=== PATIENT | male | born 1995 | race Caucasian/White ===

== ENCOUNTER 2017-08-05 11:42 | Emergency (ER) | payer OTHER, BC ==
[2017-08-05 11:48] VITALS: BP 115/74; PULSE 67; RESP 20; TEMP 98
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
--- NOTE | 2017-08-05 12:48 | XR ---
EXAMINATION TYPE: XR ribs RT w pa chest xray DATE OF EXAM: 08/05/2017 CLINICAL HISTORY: Right rib pain. TECHNIQUE: Single frontal view of the chest is obtained. Frontal and oblique views of the right ribs were also obtained. COMPARISON: None FINDINGS: There is no focal air space opacity, pleural effusion, or pneumothorax seen. The cardiac silhouette size is within normal limits. The osseous structures are intact. No displaced rib fractu re is identified. No suspicious osseous lesion is seen. IMPRESSION: No acute cardiopulmonary process or acute rib fracture.
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
== END 2017-08-05 13:08 | disposition home or self-care (01) ==
LOC: EC 11:42
DX: S16.1XXA Strain of muscle, fascia and tendon at neck level, initial encounter (principal); S20.219A Contusion of unspecified front wall of thorax, initial encounter; F17.200 Nicotine dependence, unspecified, uncomplicated; V47.5XXA Car driver injured in collision with fixed or stationary object in traffic accident, initial encounter; Y92.410 Unspecified street and highway as the place of occurrence of the external cause
CPT/HCPCS: 72050; 99284

== ENCOUNTER 2017-08-05 21:51 | Emergency (ER) | payer SELFPAY ==
[2017-08-05 21:55] VITALS: RESP 18; TEMP 97.9
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
[2017-08-06 00:25] VITALS: BP 145/78; PULSE 99
== END 2017-08-06 00:24 | disposition home or self-care (01) ==
LOC: EC 21:51
DX: R42 Dizziness and giddiness (principal); I49.8 Other specified cardiac arrhythmias; F12.90 Cannabis use, unspecified, uncomplicated; F17.200 Nicotine dependence, unspecified, uncomplicated
CPT/HCPCS: 36415; 70450; 84484; 93005; 99285

== ENCOUNTER 2017-08-30 22:21 | Emergency (ER) | payer OTHER ==
[2017-08-30 22:28] VITALS: BP 117/63; PULSE 98; RESP 16; TEMP 99.4
--- NOTE | 2017-08-30 22:36 | ED ---
Upper Extremity HPI - General Chief Complaint: Extremity Injury, Upper Stated Complaint: hand injury Time Seen by Provider: 08/30/17 22:29 Source: patient, RN notes reviewed, old records reviewed Mode of arrival: ambulatory Limitations: no limitations - History of Present Illness Initial Comments: 22-year-old male presents emergency Department chief complaint of right hand pain. He reports that one week ago he was getting from a sitting to standing position. He reports that he put his hand on the ground and caused some pain. Denies punching or hitting anything. He reports the pain is over the distal third through fifth metacarpals. He reports it's difficult for him to make a full fist due to pain and swelling. Patient states that he has a small abrasion over the fifth knuckle. He denies any numbness or tingling down the hand. Denies any elbow or wrist pain. - Related Data Home Medications Medication Instructions Recorded Confirmed No Known Home Medications [No 08/30/17 08/30/17 Known Home Medications] Allergies Allergy/AdvReac Type Severity Reaction Status Date / Time No Known Allergies Allergy Verified 08/30/17 22:28 Review of Systems ROS Statement: Those systems with pertinent positive or pertinent negative responses have been documented in the HPI. ROS Other: All systems not noted in ROS Statement are negative. Past Medical History Past Medical History: No Reported History History of Any Multi-Drug Resistant Organisms: None Reported Past Surgical History: Adenoidectomy, Tonsillectomy Past Psychological History: No Psychological Hx Reported Smoking Status: Current every day smoker Past Alcohol Use History: Occasional Past Drug Use History: Marijuana General Exam - General Exam Comments Initial Comments: 22-year-old male. No distress. Limitations: no limitations General appearance: alert, in no apparent distress Head exam: Present: atraumatic, normocephalic, normal inspection Eye exam: Present: normal appearance, PERRL, EOMI. Absent: scleral icterus, conjunctival injection, periorbital swelling ENT exam: Present: normal exam, mucous membranes moist Neck exam: Present: normal inspection. Absent: tenderness, meningismus, lymphadenopathy Respiratory exam: Present: normal lung sounds bilaterally. Absent: respiratory distress, wheezes, rales, rhonchi, stridor Cardiovascular Exam: Present: regular rate, normal rhythm, normal heart sounds. Absent: systolic murmur, diastolic murmur, rubs, gallop, clicks GI/Abdominal exam: Present: soft, normal bowel sounds. Absent: distended, tenderness, guarding, rebound, rigid Right Upper Arm exam: Present: normal inspection, full ROM Elbow exam: Present: normal inspection, full ROM Forearm Wrist exam: Present: normal inspection, full ROM Hand Wrist exam: Present: full ROM, tenderness (3-5 metacarpal), laceration ( abrasion over 5th knuckle), ecchymosis. Absent: normal inspection Neuro motor exam: Present: wrist extension intact, thumb opposition intact, thumb IP flexion intact, thumb adduction intact, fingers 2-5 abduction intact Vascular: Present: normal capillary refill Back exam: Present: normal inspection Neurological exam: Present: alert, oriented X3, CN II-XII intact Psychiatric exam: Present: normal affect, normal mood Course Vital Signs 08/30/17 22:25 Temperature 99.4 F Pulse Rate 98 Respiratory 16 Rate Blood Pressure 117/63 O2 Sat by Pulse 98 Oximetry Medical Decision Making - Medical Decision Making This patient's 22-year-old male chief complaint of right hand pain. He is a small abrasion over the distal fifth knuckle. He does have full range of motion of the fingers but there is some minor swelling. Tenderness over the distal third through fifth metacarpals. X-ray of the hand was obtained. He has no fracture just soft tissue swelling noted. Discussed at this time and he will be given Víctor wrap, discussed following up with orthosis symptoms are continuing to persist. Discussed ice and anti-inflammatory medication. Patient agrees to treatment plan will comply. Return parameters were discussed. - Radiology Data Radiology results: report reviewed X-ray shows mild soft tissue swelling. No evidence of fractures. Disposition Clinical Impression: Contusion of hand, right, Hand abrasion Disposition: HOME SELF-CARE Condition: Good Instructions: Hand Sprain (ED) Additional Instructions: Patient should take Motrin Tylenol for pain. Ice and is much as possible. Wear the Víctor wrap to help with swelling and pain. Follow-up with orthosis symptoms are continuing to persist. Referrals: None,Stated [Primary Care Provider] - 1-2 days Farhan Awad MD [STAFF PHYSICIAN] - 1-2 days Time of Disposition: 23:03
--- NOTE | 2017-08-30 22:56 | XR ---
EXAMINATION TYPE: XR hand complete RT DATE OF EXAM: 08/30/2017 COMPARISON: 07/30/2014 HISTORY: Pain TECHNIQUE: 3 views FINDINGS: I see no fracture nor dislocation. Metacarpals are intact. There is mild soft tissue swelli ng on the dorsum of the MP joints. IMPRESSION: Mild soft tissue swelling. No fracture.
== END 2017-08-30 23:10 | disposition home or self-care (01) ==
LOC: EC 22:21
DX: S60.221A Contusion of right hand, initial encounter (principal); F17.200 Nicotine dependence, unspecified, uncomplicated; X50.9XXA Other and unspecified overexertion or strenuous movements or postures, initial encounter; Y93.89 Activity, other specified
CPT/HCPCS: 99284

== ENCOUNTER 2017-10-11 15:25 | Inpatient (IN) | payer BC, OTHER ==
[2017-10-11 15:37] VITALS: RESP 16
[2017-10-11] MEDS ORDERED: DIPH,PERTUS(ACELL)TETVAC-LF 0.5 ML VIAL IM ONE (15:56)
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
[2017-10-11] MEDS ORDERED: TOPICAL SKIN ADHESIVE 1 EACH AMP TOPICAL ONE (17:26)
[2017-10-11] MEDS ORDERED: IBUPROFEN 600 MG TAB PO PRN (18:48)
[2017-10-11] MEDS ORDERED: MAGNESIUM HYDROXIDE 2,400 MG/10 ML CUP PO PRN (18:55)
[2017-10-11] MEDS ORDERED: ZIPRASIDONE 20 MG VIAL IM PRN (18:55)
[2017-10-11] MEDS ORDERED: ACETAMINOPHEN TAB 325 MG TAB PO PRN (18:55)
[2017-10-11] MEDS ORDERED: LORazepam 1 MG TAB PO PRN (18:55)
[2017-10-11] MEDS ORDERED: MAG HYDROX/AL HYDROX/SIMETH 30 ML CUP PO PRN (18:55)
[2017-10-11] MEDS ORDERED: LORazepam 2 MG/ML INJ IM PRN (18:56)
--- NOTE | 2017-10-11 18:56 | P.HPMEDMHU ---
History of Present Illness H&P Date: 10/11/17 Chief Complaint: left arm pain Patient is a 22-year-old male with a past medical history of ADD, ADHD , and tobacco abuse who presented to the emergency department for a laceration on his left forearm. Apparently he had gotten into an argument with his and had been punching things. In the ER he admitted to thoughts of self-harm at times. He then signed voluntary into the mental health unit. We have been asked to evaluate him for medical management. Patient seen and examined at bedside. He states that sometimes he gets angry and has difficulty controlling his temper and then feels hopeless. He has a and 2 children at home and life is busy. He denies any recent illnesses. He has not had any cough, cold, fever, flu, nausea, vomiting, diarrhea, constipation. He has poor sleep hygiene and states he sleeps only 1-2 hours a night. He does have an 8-month-old at home. He complains of pain in his left arm that started after his laceration. He has no other complaints of pain currently. He admits to a history of cutting himself but states that was a few years ago. The only medications he has taken in the past are Ritalin and Concerta for ADHD Review of Systems Pertinent positives: + Anger, + difficult to control temper, + left arm pain Pertinent positives and negatives as discussed in HPI, a complete review of systems was performed and all other systems are negative. 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 - Past Family History Father Family Medical History: No Reported History Mother Family Medical History: No Reported History Additional Family Medical History / Comment(s): Patient state no known family history but he is estranged from family Medications and Allergies Home Medications Medication Instructions Recorded Confirmed Type Ibuprofen [Motrin Ib] 800 mg PO BID PRN 10/11/17 10/11/17 History Allergies Allergy/AdvReac Type Severity Reaction Status Date / Time No Known Allergies Allergy Verified 10/11/17 18:47 Physical Exam Osteopathic Statement: *. No significant issues noted on an osteopathic structural exam other than those noted in the History and Physical/Consult. Vitals: Vital Signs Temp Pulse Pulse Resp BP BP Pulse Ox 10/11/17 18:10 98.2 F 60 16 103/58 10/11/17 15:30 97.9 F 74 16 125/77 98 Intake and Output 10/11/17 10/11/17 10/11/17 06:59 14:59 22:59 Other: Weight 63.503 kg General: non toxic, no distress, appears at stated age, normal weight Derm: Laceration to left forearm with 7 sutures intact, no swelling, no redness or drainage, multiple other small abrasions, no unusual rashes/lesions no unusual ecchymoses, warm, dry Head: atraumatic, normocephalic, symmetric Eyes: EOMI, no lid lag, anicteric sclera, pupils equal round reactive to light ENT: Nose and ears atraumatic, no thrush, no pharyngeal erythema Neck: No thyromegaly, no cervical lymphadenopathy, trachea midline, supple Mouth: no lip lesion, mucus membranes moist Cardiovascular: S1S2 reg, no murmur, positive posterior tibial pulse bilateral, no edema, capillary refill less than 2 seconds Lungs: CTA bilateral, no rhonchi, no rales , no accessory muscle use Abdominal: soft, nontender to palpation, no guarding, no appreciable organomegaly, normal bowel sounds Ext: no gross muscle atrophy, muscle strength 5 out of 5 in all 4 extremities grossly, no contractures, Neuro: CN II-XI grossly intact, light touch intact all 4 extremities, finger to nose within normal limits, Psych: Alert, oriented, appropriate affect Cranial Nerve Examination - Cranial Nerves Cranial Nerve II- Optic: Intact Cranial Nerve III- Oculomotor: Intact Cranial Nerve IV- Trochlear: Intact Cranial Nerve V- Trigeminal: Intact Cranial Nerve - Abducens: Intact Cranial Nerve VII- Facial: Intact Cranial Nerve VIII- Auditory: Intact Cranial Nerve IX- Glossopharyngeal: Intact Cranial Nerve X- Vagus: Intact Cranial Nerve XI- Accessory: Intact Cranial Nerve XII- Hypoglossal: Intact Results Comments: X-ray of hand reviewed. Soft tissue swelling over right metacarpophalangeal joint Thrombosis Risk Factor Assmnt - DVT/VTE Prophylaxis DVT/VTE Prophylaxis: Low risk, early ambulation encouraged Assessment and Plan Assessment: Laceration left forearm -[address] -Will need suture removal in approximately 7-10 days -Apply bacitracin once daily and keep covered -Motrin for pain control Tobacco abuse -Cessation -Nicotine replacement Mood instability -Your psych management Check general labs with kidney, liver, CBC, and TSH. Thank you for allowing us to participate in the care of this patient. We will follow peripherally. Do not hesitate to contact us with questions. Someone can be reached from the [facility] hospitalist group at all hours of the day at [phone].
[2017-10-11 18:57] VITALS: BMI 19.7
[2017-10-11 19:08] LABS: Appearance,Urine Clear (Clear); Bilirubin,Urine Negative (Negative); Blood,Urine Negative (Negative); Color,Urine Yellow; Glucose,Urine (UA) Negative (Negative); Ketones,Urine Negative (Negative); Leukocyte Esterase,Urine Negative (Negative); Nitrite,Urine Negative (Negative); PH, Urine 6.5 (5.0-8.0); Protein,Urine Trace (Negative); Specific Gravity,Urine 1.019 (1.001-1.035); Urobilinogen,Urine <2.0 mg/dL (<2.0)
[2017-10-11 19:23] LABS: Amphetamine Screen,Urine Not Detected (NotDetected); Barbiturate Screen,Urine Not Detected (NotDetected); Benzodiazepines Screen,Urine Not Detected (NotDetected); Cocaine Screen,Urine Not Detected (NotDetected); Methadone Screen, Urine Not Detected (NotDetected); Opiate Screen,Urine Not Detected (NotDetected); Oxycodone Screen, Urine Not Detected (NotDetected); Phencyclidine Screen,Urine Not Detected (NotDetected); Tricyclic Antidepressant,Urine Not Detected (NotDetected); Urn Cannabinoid Scrn Detected (NotDetected)
[2017-10-12 09:12] LABS: Basophils # (A) 0.1 k/uL (0-0.2); Basophils % (A) 1 %; Eosinophils # (A) 0.3 k/uL (0-0.7); Eosinophils % (A) 3 %; HCT 47.9 % (39.0-53.0); HGB 15.7 gm/dL (13.0-17.5); Lymphocytes # (A) 2.6 k/uL (1.0-4.8); Lymphocytes % (A) 28 %; MCH 28.9 pg (25.0-35.0); MCHC 32.8 g/dL (31.0-37.0); MCV 88.2 fL (80.0-100.0); Mean Platelet Volume 6.7; Monocytes # (A) 0.6 k/uL (0-1.0); Monocytes % (A) 6 %; Neutrophils # (A) 5.6 k/uL (1.3-7.7); Neutrophils % (A) 60 %; Platelet Count 268 k/uL (150-450); RBC 5.43 m/uL (4.30-5.90); RDW 12.4 % (11.5-15.5); WBC 9.4 k/uL (3.8-10.6)
[2017-10-12] MEDS: NICOTINE 14MG/24HR PATCH TRANSDERM SCH (09:15)
[2017-10-12] MEDS: BACITRACIN 500 UNIT/GM OINT 28.4 GM TUBE TOPICAL SCH (09:16)
[2017-10-12 09:21] LABS: ALT 32 U/L (21-72); AST 23 U/L (17-59); Albumin 4.4 g/dL (3.5-5.0); Alkaline Phosphatase 61 U/L (38-126); Anion Gap 12 mmol/L; Blood Urea Nitrogen 16 mg/dL (9-20); Calcium 9.4 mg/dL (8.4-10.2); Carbon Dioxide 26 mmol/L (22-30); Chloride 105 mmol/L (98-107); Glucose 156 mg/dL (74-99); Potassium 4.5 mmol/L (3.5-5.1); Sodium 143 mmol/L (137-145); Total Bilirubin 0.6 mg/dL (0.2-1.3); Total Protein 6.9 g/dL (6.3-8.2)
--- NOTE | 2017-10-12 12:31 | P.HP ---
Psychiatric H&P - . H&P Date: 10/12/17 History & Physical: IDENTIFYING DATA: The patient is a 22-year-old male who presented voluntarily to the psychiatric unit with suicidal ideation and history of nonlethal self-harm. HISTORY OF PRESENT ILLNESS: He presented to the emergency department initially for the treatment for laceration to his left arm. During the course in the ED he expressed suicidal ideation in the context of recurrent conflict with his . He has been for 3 months and described an argument that escalated to where he was kicking and punching objects that resulted in the cut his arm. He denied that he had cut his arm intentionally and frustration or as a suicide attempt or gesture. He described a history of poor frustration tolerance, difficulty controlling his temper and impulsive behavior. He was diagnosed with ADHD as a child and treated with psychostimulants until early adolescence. He could not recall specifically what started the recent argument with his . He talked about "small things" being important to his and not paying attention to her emotional needs. He denied that he had suicidal plans or an intent to end his life. He described intermittent thoughts of suicide that developed usually in context of stress or frustration. He has a history of nonlethal self-harm where he is made superficial lacerations to his wrist forearm and thighs that occur during periods of heightened emotional states, frustration or anger. He denied experiencing persistent sadness, hopelessness, helplessness or worthlessness. He denied other symptoms of depression such as guilt, insomnia, impairment in functioning, psychomotor retardation, weight loss as well as psychiatric medication anxiety. He denied that he experiences persistent anxiety that interferes with his ability to function. He denied obsessions or compulsions. He denied psychotic experiences such as auditory, visual or olfactory hallucinations, thought insertion, thought casting etc. He smokes marijuana daily but denied the use of other drugs to get high, help him sleep or changes mood. He denied daily use of alcohol. PAST PSYCHIATRIC HISTORY: He denied prior psychiatric hospitalizations. He is not currently in mental health treatment. As mentioned above, he was treated for diagnosis of ADHD as a child. He began self cutting when he was "about 16 years old". He denied that he cuts himself with the intent to end his life. He described a pattern of increasing emotional distress and frustration that his partially relieves by the active self-harm. He denied that he has attempted suicide. PAST MEDICAL HISTORY: He denied history of major medical problems.. ALLERGIES: No known ALLERGIES. SUBSTANCE USE HISTORY: He smokes marijuana every day. He was court ordered for substance abuse counseling following minor in possession of alcohol charges. He denied the use of such drugsas heroin, or opioid pain medications, cocaine, crack cocaine, methamphetamine etc. Tobacco use: He smokes one pack of cigarettes per day FAMILY PSYCHIATRIC/SUBSTANCE USE HISTORY: He is unaware of family history of mental illness. He admitted that several individual in his family have problems with alcohol. LEGAL HISTORY: He is had 2 charges of minor in possession of alcohol. He spent 5 days in senior care following the second charge. He denied that he is on probation, parole or has pending charges. SOCIAL HISTORY: His born and raised in [facility]. He is 1 of 6 children. His parents were never . His brothers and sisters are from different fathers. He attended special education classes. He left high school in 12th grade because he had difficulty with the academics. 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 He was in June. They have a 8-month-old child and his has a 2-year-old from a prior relationship. He lives in an apartment with his their 2 children. MENTAL STATUS EXAM: He presented as a thin somewhat disheveled appearing young male who was pleasant on approach. He made eye contact and appeared to attend to interview. He wore a large earring on the left lobe but had no prominent physical abnormalities. He had a blunted and anxious facial expression. He was alert and oriented to person, place and time. He showed slight psychomotor retardation but no abnormal movements. His his gait was slow but steady. His speech was spontaneous with slight decrease in rate and rhythm. His affect was blunted but stable and appropriate. He denied suicidal ideation or wishes. He denied homicidal ideation. He denied such could depressive cognitions as hopelessness, helplessness or worthlessness. He did not express phobias, ideas reference, paranoid ideation or delusional thoughts. His thinking was concrete but his associations were coherent, logical and goal directed. He denied hallucinations and did not appear to be responding to internal stimuli. Global impression of intellect is average to below. He is aware of his emotional problems and difficulty with frustration tolerance and understands the need for treatment. STRENGTHS: Supportive family, stable employment, good physical health. WEAKNESSES: History of ADHD, possible learning disability, poor frustration tolerance. IMPRESSION: Is a 22-year-old male who has history of a diagnosis of ADHD. He presented to the psychiatric unit with suicidal ideation following an argument with his . He reports history of impulsive behavior, poor frustration tolerance and difficulty controlling his anger. He is not been treated for ADHD since he was young adolescent. His history of nonlethal self-harm where he cuts himself on the arm and legs during periods of heightened emotional tension. He does not appear to meet criteria for mood disorder, anxiety disorder or psychotic disorder. I suspect that the self-harm, poor frustration tolerance, difficulty with his temper are related to the ADHD and possible developmental disability. He should be treated on an outpatient basis with a combination of multimodal therapy and psychopharmacology. Consider a trial of an activating antidepressant such as Effexor or Wellbutrin. PRINCIPLE DIAGNOSIS: Suicidal ideation, ADHD, adjustment disorder with disturbance of mood and conduct, cannabis use disorder unspecified RECOMMENDATION: Continue inpatient psychiatric hospitalization due to the suicidal ideation and impulsive behavior. Begin a trial of Effexor XL 150 mg daily for the treatment of ADHD and emotional lability. Encourage participation in therapeutic groups and activities. Evaluate clinical status response to treatment daily basis. Refer to the [facility] for continued outpatient mental health treatment. Allergies Allergy/AdvReac Type Severity Reaction Status Date / Time No Known Allergies Allergy Verified 10/11/17 18:47 Vital Signs Temp 97.8 F 10/12/17 06:22 Pulse 63 10/12/17 06:22 Resp 16 10/12/17 06:22 BP 110/56 10/12/17 06:22 Pulse Ox 98 10/11/17 15:30 Intake & Output 10/11/17 10/12/17 10/12/17 18:59 06:59 18:59 Weight 58.9 kg 58.9 kg Laboratory Last Values WBC 9.4 k/uL (3.8-10.6) 10/12/17 08:46 RBC 5.43 m/uL (4.30-5.90) 10/12/17 08:46 Hgb 15.7 gm/dL (13.0-17.5) 10/12/17 08:46 Hct 47.9 % (39.0-53.0) 10/12/17 08:46 MCV 88.2 fL (80.0-100.0) 10/12/17 08:46 MCH 28.9 pg (25.0-35.0) 10/12/17 08:46 MCHC 32.8 g/dL (31.0-37.0) 10/12/17 08:46 RDW 12.4 % (11.5-15.5) 10/12/17 08:46 Plt Count 268 k/uL (150-450) 10/12/17 08:46 Neutrophils % 60 % 10/12/17 08:46 Lymphocytes % 28 % 10/12/17 08:46 Monocytes % 6 % 10/12/17 08:46 Eosinophils % 3 % 10/12/17 08:46 Basophils % 1 % 10/12/17 08:46 Neutrophils # 5.6 k/uL (1.3-7.7) 10/12/17 08:46 Lymphocytes # 2.6 k/uL (1.0-4.8) 10/12/17 08:46 Monocytes # 0.6 k/uL (0-1.0) 10/12/17 08:46 Eosinophils # 0.3 k/uL (0-0.7) 10/12/17 08:46 Basophils # 0.1 k/uL (0-0.2) 10/12/17 08:46 Sodium 143 mmol/L (137-145) 10/12/17 08:46 Potassium 4.5 mmol/L (3.5-5.1) 10/12/17 08:46 Chloride 105 mmol/L (98-107) 10/12/17 08:46 Carbon Dioxide 26 mmol/L (22-30) 10/12/17 08:46 Anion Gap 12 mmol/L 10/12/17 08:46 BUN 16 mg/dL (9-20) 10/12/17 08:46 Creatinine 1.00 mg/dL (0.66-1.25) 10/12/17 08:46 Est GFR (CKD-EPI)AfAm >90 (>60 ml/min/1.73 sqM) 10/12/17 08:46 Est GFR (CKD-EPI)NonAf >90 (>60 ml/min/1.73 sqM) 10/12/17 08:46 Glucose 156 mg/dL (74-99) H 10/12/17 08:46 Calcium 9.4 mg/dL (8.4-10.2) 10/12/17 08:46 Total Bilirubin 0.6 mg/dL (0.2-1.3) 10/12/17 08:46 AST 23 U/L (17-59) 10/12/17 08:46 ALT 32 U/L (21-72) 10/12/17 08:46 Alkaline Phosphatase 61 U/L (38-126) 10/12/17 08:46 Total Protein 6.9 g/dL (6.3-8.2) 10/12/17 08:46 Albumin 4.4 g/dL (3.5-5.0) 10/12/17 08:46 TSH 1.470 mIU/L (0.465-4.680) 10/12/17 08:46 Urine Color Yellow 10/11/17 17:10 Urine Appearance Clear (Clear) 10/11/17 17:10 Urine pH 6.5 (5.0-8.0) 10/11/17 17:10 Ur Specific [place] 1.019 (1.001-1.035) 10/11/17 17:10 Urine Protein Trace (Negative) H 10/11/17 17:10 Urine Glucose (UA) Negative (Negative) 10/11/17 17:10 Urine Ketones Negative (Negative) 10/11/17 17:10 Urine Blood Negative (Negative) 10/11/17 17:10 Urine Nitrite Negative (Negative) 10/11/17 17:10 Urine Bilirubin Negative (Negative) 10/11/17 17:10 Urine Urobilinogen <2.0 mg/dL (<2.0) 10/11/17 17:10 Ur Leukocyte Esterase Negative (Negative) 10/11/17 17:10 Urine Opiates Screen Not Detected (NotDetected) 10/11/17 17:00 Ur Oxycodone Screen Not Detected (NotDetected) 10/11/17 17:00 Urine Methadone Screen Not Detected (NotDetected) 10/11/17 17:00 Ur Propoxyphene Screen Not Detected (NotDetected) 10/11/17 17:00 Ur Barbiturates Screen Not Detected (NotDetected) 10/11/17 17:00 U Tricyclic Antidepress Not Detected (NotDetected) 10/11/17 17:00 Ur Phencyclidine Scrn Not Detected (NotDetected) 10/11/17 17:00 Ur Amphetamines Screen Not Detected (NotDetected) 10/11/17 17:00 U Methamphetamines Scrn Not Detected (NotDetected) 10/11/17 17:00 U Benzodiazepines Scrn Not Detected (NotDetected) 10/11/17 17:00 Urine Cocaine Screen Not Detected (NotDetected) 10/11/17 17:00 U Marijuana (THC) Screen Detected (NotDetected) H 10/11/17 17:00 10/12/17 12:05 10/12/17 12:14
[2017-10-12] MEDS: buPROPion XL 150 MG TAB.ER.24H PO SCH (14:57)
[2017-10-13 06:30] VITALS: BP 137/73; PULSE 58; TEMP 97.6
[2017-10-13] MEDS: buPROPion XL 150 MG TAB.ER.24H PO SCH (09:06)
[2017-10-13] MEDS: NICOTINE 14MG/24HR PATCH TRANSDERM SCH (09:06)
[2017-10-13] MEDS: BACITRACIN 500 UNIT/GM OINT 28.4 GM TUBE TOPICAL SCH (09:08)
--- NOTE | 2017-10-13 12:45 | P.DS ---
Providers Date of admission: 10/11/17 17:08 Attending physician: Wesley Hoang MD Consults: 10/11/17 18:55 Consult Physician Routine Consulting Provider: Rhianna Physician Consult Reason/Comments: follow up H & P Do you want consulting provider notified?: Already Contacted Primary care physician: Stated None - Discharge Diagnosis(es) (1) ADHD (attention deficit hyperactivity disorder) Current Visit: Yes Status: Chronic Priority: Medium (2) Laceration Current Visit: Yes Status: Acute Priority: Low (3) Suicidal ideation Current Visit: Yes Status: Resolved Hospital Course: The patient is a 22-year-old male who presented voluntarily to the psychiatric unit with suicidal ideation, history of nonlethal self-harm (cutting ) and ADHD. He initially presented to the emergency department for the treatment of laceration to his left arm. During the course in the emergency department express suicidal ideation in the context of recurrent conflict with his . They have been 3 months and he described frequent conflict. Prior to admission he described an argument that escalated to where he was kicking and function objects that resulted in injury to his arm. He denied that he had cut his arm intentionally that he attempted suicide. He described a history of ADHD and poor frustration tolerance, difficulty controlling his temper and impulsive behavior. He denied symptoms suggestive of sustained depression such as persistent sadness, hopelessness, helplessness or worthlessness. He denied experiencing such depressive symptoms as guilt, insomnia, impairment in functioning, psychomotor retardation or weight loss. He denied experiencing other psychotic symptoms such as persistent and severe anxiety, obsessions, compulsions and psychotic symptoms. He smokes marijuana daily denied use of other drugs including alcohol. We admitted him to the psychiatric unit under care of this screen writer. We provided a biopsychosocial assessment. The [employer] consultant service trainer completed initial physical examination. Relatedness diagnoses laceration to left arm, and tobacco abuse. His UDS was positive only for marijuana. The suicidal thoughts remitted by the time he arrived on the psychiatric unit. He posed no management problem and required no emergency medications for treatment of acute symptoms. We discussed a trial of an activating antidepressant for the treatment of the impulsiveness, poor frustration tolerance and difficulty controlling his anger. He consented to a trial of bupropion and we began Wellbutrin XL 150 mg daily. He reported no side effects but felt that he was "better able to concentrate" with the medication. At the time of discharge he was casually groomed, pleasant and cooperative. He made eye contact and attended to interview. He had a blunted steep tender right facial expression. He was alert and oriented to person, place and time. He showed no abnormality of psychomotor activity. His speech was spontaneous with normal rate, rhythm and volume. His affect was stable and appropriate. He denied suicidal ideation or wishes. He denied homicidal ideation. He denied such depressive cognitions as hopelessness, helplessness and worthlessness. He did not ask phobias, ideas reference and paranoid ideation. He did not express delusional thoughts. His thinking was abstract and associations were coherent and goal directed. He denied hallucinations and didn't appear to be responding to internal stimuli. Patient Condition at Discharge: Good Plan - Discharge Summary Discharge Rx Participant: No New Discharge Prescriptions: New buPROPion XL [Wellbutrin XL] 150 mg PO DAILY #30 tab.er.24h Nicotine 14Mg/24Hr Patch [Habitrol] 1 patch TRANSDERM DAILY #7 patch Continue Ibuprofen [Motrin Ib] 800 mg PO BID PRN PRN Reason: Pain Discharge Medication List Ibuprofen [Motrin Ib] 800 mg PO BID PRN 10/11/17 [History] Nicotine 14Mg/24Hr Patch [Habitrol] 1 patch TRANSDERM DAILY #7 patch 10/13/17 [ Rx] buPROPion XL [Wellbutrin XL] 150 mg PO DAILY #30 tab.er.24h 10/13/17 [Rx] Follow up Appointment(s)/Referral(s): None,Stated [Primary Care Provider] - 1-2 days Patient Instructions/Handouts: How to Stop Smoking (DC), Stress (DC), ADHD in Adults (DC), Cannabis Abuse (DC), Suicide Prevention for Adults (DC) Activity/Diet/Wound Care/Special Instructions: Remove sutures between October 18- Remove all weapons and firearms from your home; Refrain from street drugs and alcohol; Diet as tolerated; Activity as tolerated; Keep all scheduled follow-up appointments for continuity of care; If you need any of your prescriptions refilled, either contact your PCP for medical meds. or your after care psychiatrist for psych. meds.; If you have any problems, you can call the Crisis Line at or 409 in case of emergency or go to the nearest emergency room for a psychiatric evaluation. Discharge Disposition: HOME SELF-CARE
== END 2017-10-13 13:23 | disposition home or self-care (01) | DRG 886 ==
LOC: EC 15:25 → 3MHU 17:08
PROVIDERS: ADMIT Psychiatry & Neurology Psychiatry; ATTEND Psychiatry & Neurology Psychiatry
PROC: 0HQGXZZ Repair Left Hand Skin, External Approach (ICD-10-PCS; principal; 2017-10-11)
PROC: 0HQEXZZ Repair Left Lower Arm Skin, External Approach (ICD-10-PCS; principal; 2017-10-11)
DX: F90.9 Attention-deficit hyperactivity disorder, unspecified type (principal); R45.851 Suicidal ideations; F12.90 Cannabis use, unspecified, uncomplicated; F17.200 Nicotine dependence, unspecified, uncomplicated; S51.812A Laceration without foreign body of left forearm, initial encounter; S61.211A Laceration without foreign body of left index finger without damage to nail, initial encounter; W22.01XA Walked into wall, initial encounter
CPT/HCPCS: 12002; 80053; 80306; 81003; 82075; 84443; 85025; 90471; 90715; 99285

== ENCOUNTER 2017-12-04 18:58 | Emergency (ER) | payer OTHER ==
[2017-12-04 19:27] VITALS: PULSE 100; RESP 20; TEMP 98.6
[2017-12-04 19:28] VITALS: BP 117/60
--- NOTE | 2017-12-04 20:35 | XR ---
EXAMINATION TYPE: XR foot complete LT DATE OF EXAM: 12/04/2017 COMPARISON: NONE HISTORY: Foot pain TECHNIQUE: 3 views FINDINGS: I see no fracture nor dislocation. Metatarsals are intact. There are no erosions. IMPRESSION: Negative left foot exam.
--- NOTE | 2017-12-04 21:03 | ED ---
General Adult HPI - General Chief complaint: Extremity Injury, Lower Stated complaint: lt foot injury Time Seen by Provider: 12/04/17 20:38 Source: patient, family, RN notes reviewed Mode of arrival: ambulatory Limitations: no limitations - History of Present Illness Initial comments: 22-year-old male presents to the emergency department for a chief complaint of left foot pain. Patient states he was at work when a cart carrying a heavy crate rolled over his left foot one week ago. Patient states it has been hurting since because he has been walking on it and working with it for the past week. Patient states he now has the weekend off. Patient states the pain is mostly on the plantar aspect of his left foot. Patient denies any pain in the ankle. Patient denies any other injuries. Patient has no other complaints at this time including shortness of breath, chest pain, abdominal pain, nausea or vomiting, headache, or visual changes. - Related Data Home Medications Medication Instructions Recorded Confirmed Ibuprofen [Motrin Ib] 800 mg PO BID PRN 10/11/17 12/04/17 Previous Rx's Medication Instructions Recorded Nicotine 14Mg/24Hr Patch [Habitrol] 1 patch TRANSDERM DAILY #7 patch 10/13/17 buPROPion XL [Wellbutrin XL] 150 mg PO DAILY #30 tab.er.24h 10/13/17 Allergies Allergy/AdvReac Type Severity Reaction Status Date / Time No Known Allergies Allergy Verified 12/04/17 19:27 Review of Systems ROS Statement: Those systems with pertinent positive or pertinent negative responses have been documented in the HPI. ROS Other: All systems not noted in ROS Statement are negative. Past Medical History Past Medical History: No Reported History Additional Past Medical History / Comment(s): ADD/ADHD History of Any Multi-Drug Resistant Organisms: None Reported Past Surgical History: Adenoidectomy, Tonsillectomy Past Psychological History: No Psychological Hx Reported Smoking Status: Current every day smoker Past Alcohol Use History: Occasional Past Drug Use History: Marijuana - Past Family History Father Family Medical History: No Reported History Mother Family Medical History: No Reported History Additional Family Medical History / Comment(s): Patient state no known family history but he is estranged from family General Exam Limitations: no limitations General appearance: alert, in no apparent distress Head exam: Present: atraumatic, normocephalic, normal inspection Eye exam: Present: normal appearance ENT exam: Present: normal exam Neck exam: Present: normal inspection, full ROM. Absent: tenderness, meningismus, lymphadenopathy Respiratory exam: Present: normal lung sounds bilaterally. Absent: respiratory distress, wheezes, rales, rhonchi, stridor Cardiovascular Exam: Present: regular rate, normal rhythm, normal heart sounds. Absent: systolic murmur, diastolic murmur, rubs, gallop, clicks Extremities exam: Present: full ROM (Full range of motion of the left ankle. Patient is able to move all toes in the left foot), tenderness (Tenderness to the plantar aspect of the left foot), normal capillary refill (Refill less than 2 seconds and pedal pulse 2+). Absent: joint swelling (No swelling or ecchymosis or erythema noted of the left foot) Course Vital Signs 12/04/17 19:25 Temperature 98.6 F Pulse Rate 100 Respiratory 20 Rate Blood Pressure 117/60 O2 Sat by Pulse 97 Oximetry Medical Decision Making - Medical Decision Making 22-year-old male presents to the emergency department for a chief complaint of left foot pain times one week. Patient was at work when a cart ran over his foot. On exam patient has full range motion of the ankle and can move all toes. Pedal pulse 2+. Neurovascular intact. No signs of trauma or ecchymosis noted.X-ray of the left foot shows no fracture or dislocation. Metatarsals are intact. No erosions. Patient left AMA after being told he needed to give a urine sample for work. Disposition Clinical Impression: Foot pain, left Disposition: Left Against Medical Advice Condition: Good Instructions: Foot Contusion (ED) Is patient prescribed a controlled substance at d/c from ED?: No Referrals: None,Stated [Primary Care Provider] - 1-2 days Time of Disposition: 21:02
== END 2017-12-04 21:03 | disposition left against medical advice (07) ==
LOC: EC 18:58
DX: M79.672 Pain in left foot (principal); F17.200 Nicotine dependence, unspecified, uncomplicated
CPT/HCPCS: 99283

== ENCOUNTER 2018-02-14 14:27 | Emergency (ER) | payer MEDICAID, OTHER ==
[2018-02-14 14:35] VITALS: RESP 16
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
[2018-02-14 16:26] LABS: Amphetamine Screen,Urine Not Detected (NotDetected); Barbiturate Screen,Urine Not Detected (NotDetected); Benzodiazepines Screen,Urine Not Detected (NotDetected); Cocaine Screen,Urine Not Detected (NotDetected); Methadone Screen, Urine Not Detected (NotDetected); Opiate Screen,Urine Not Detected (NotDetected); Oxycodone Screen, Urine Not Detected (NotDetected); Phencyclidine Screen,Urine Not Detected (NotDetected); Tricyclic Antidepressant,Urine Not Detected (NotDetected); Urn Cannabinoid Scrn Not Detected (NotDetected)
[2018-02-14 16:34] VITALS: BP 120/78; PULSE 84; TEMP 98
== END 2018-02-14 16:30 | disposition home or self-care (01) ==
LOC: EC 14:27
DX: R45.851 Suicidal ideations (principal); F32.9 Major depressive disorder, single episode, unspecified; F17.200 Nicotine dependence, unspecified, uncomplicated
CPT/HCPCS: 80306; 82075; 99285

== ENCOUNTER → 2018-03-04 | Outpatient (CLI) | payer OTHER ==
[2018-03-04 10:15] LABS: Blood Urea Nitrogen 14 mg/dL (9-20); Cholesterol 176 mg/dL (<200); Glucose 99 mg/dL (74-99); HDL Cholesterol 52 mg/dL (40-60); LDL Cholesterol,Calculated 104 mg/dL (0-99); Lithium 0.5 mmol/L; Triglycerides 98 mg/dL (<150)
[2018-03-04 17:57] LABS: Hemoglobin A1C 5.6 % (4.0-6.0)
== END ==
LOC: LABWHC1 09:21
PROVIDERS: ATTEND Psychiatry & Neurology Psychiatry
DX: Z51.81 Encounter for therapeutic drug level monitoring (principal); Z79.899 Other long term (current) drug therapy
CPT/HCPCS: 36415; 80061; 80178; 82565; 82947; 83036; 84439; 84443; 84520

== ENCOUNTER 2018-06-16 18:50 | Emergency (ER) | payer OTHER ==
--- NOTE | 2018-06-16 19:09 | ED ---
Psych HPI - General Stated Complaint: EPS eval Time Seen by Provider: 06/16/18 18:52 - History of Present Illness Initial Comments: Is a 22-year-old male with history depression who presents emergent department for suicidal comments. He states he got in an argument with his who left. He stated that he was going to take all his pills to her so she called the police who brought him here. The patient states he is not suicidal currently. No homicidal ideation. He states he did not mean what he said and said it out of frustration. He states that not have any intent on taking his medications. He states that he did not take any extra doses of his medications today. He only took his morning doses this morning. He currently denies any physical complaints. - Related Data Home Medications Medication Instructions Recorded Confirmed Benztropine Mesylate 0.5 mg PO BID 06/16/18 06/16/18 [place] [facility] Carbonate 300 mg PO HS 06/16/18 06/16/18 Paliperidone IM [Invega Sustenna] 156 mg IM Q28D 06/16/18 06/16/18 buPROPion HCL [Wellbutrin XL] 150 mg PO DAILY 06/16/18 06/16/18 traZODone HCL 100 mg PO HS 06/16/18 06/16/18 Allergies Allergy/AdvReac Type Severity Reaction Status Date / Time No Known Allergies Allergy Verified 06/16/18 19:20 Review of Systems ROS Statement: Those systems with pertinent positive or pertinent negative responses have been documented in the HPI. ROS Other: All systems not noted in ROS Statement are negative. Past Medical History Past Medical History: No Reported History Additional Past Medical History / Comment(s): ADD/ADHD History of Any Multi-Drug Resistant Organisms: None Reported Past Surgical History: Adenoidectomy, Tonsillectomy Past Psychological History: No Psychological Hx Reported Smoking Status: Current every day smoker Past Alcohol Use History: Occasional Past Drug Use History: None Reported - Past Family History Father Family Medical History: No Reported History Mother Family Medical History: No Reported History Additional Family Medical History / Comment(s): Patient state no known family history but he is estranged from family General Exam - General Exam Comments Initial Comments: Constitutional: Awake alert Appears comfortable Head: Normocephalic atraumatic Eyes: no conjunctival injection No scleral icterus EOMI Neck: No JVD Supple Heart: Regular rate rhythm normal S1-S2 no murmurs Lungs: Clear to auscultation bilaterally No wheezing No rales Abdomen: Soft nondistended nontender Extremities: Non edematous DP pulses intact Radial pulses intact Neuro: A&Ox3 No focal neurologic deficits Psych: Appropriate mood and affect, no suicidal or homicidal ideation Course Vital Signs 06/16/18 06/16/18 19:14 22:06 Temperature 98.7 F 98.5 F Pulse Rate 99 77 Respiratory 18 18 Rate Blood Pressure 125/79 141/77 O2 Sat by Pulse 96 96 Oximetry Medical Decision Making - Medical Decision Making The 22-year-old male who presented for suicidal comments. Patient denies any suicidal ideation in the emergency department. He was evaluated by EPS who did not feel he was requiring inpatient treatment. He is going to have the mobile crisis unit and follow-up with him tomorrow. The was agreeable to take him home. Told to return if he had any worsening or changing symptoms. All questions answered. - Lab Data Lab Results 06/16/18 06/16/18 Range/Units 19:42 21:19 Urine Opiates Screen Not Detected (NotDetected) Ur Oxycodone Screen Not Detected (NotDetected) Urine Methadone Screen Not Detected (NotDetected) Ur Propoxyphene Screen Not Detected (NotDetected) Ur Barbiturates Screen Not Detected (NotDetected) U Tricyclic Antidepress Not Detected (NotDetected) Ur Phencyclidine Scrn Not Detected (NotDetected) Ur Amphetamines Screen Not Detected (NotDetected) U Methamphetamines Scrn Not Detected (NotDetected) U Benzodiazepines Scrn Not Detected (NotDetected) [facility] 0.2 mmol/L Urine Cocaine Screen Not Detected (NotDetected) U Marijuana (THC) Screen Detected H (NotDetected) Disposition Clinical Impression: Depression Disposition: HOME SELF-CARE Condition: Stable Instructions (If sedation given, give patient instructions): Depression (ED) Is patient prescribed a controlled substance at d/c from ED?: No Referrals: None,Stated [Primary Care Provider] - 1-2 days
[2018-06-16 19:20] VITALS: RESP 18
[2018-06-16 20:04] LABS: Amphetamine Screen,Urine Not Detected (NotDetected); Barbiturate Screen,Urine Not Detected (NotDetected); Benzodiazepines Screen,Urine Not Detected (NotDetected); Cocaine Screen,Urine Not Detected (NotDetected); Methadone Screen, Urine Not Detected (NotDetected); Opiate Screen,Urine Not Detected (NotDetected); Oxycodone Screen, Urine Not Detected (NotDetected); Phencyclidine Screen,Urine Not Detected (NotDetected); Tricyclic Antidepressant,Urine Not Detected (NotDetected); Urn Cannabinoid Scrn Detected (NotDetected)
[2018-06-16 22:09] VITALS: BP 141/77; PULSE 77; TEMP 98.5
== END 2018-06-16 22:06 | disposition home or self-care (01) ==
LOC: EC 18:50
DX: F31.30 Bipolar disorder, current episode depressed, mild or moderate severity, unspecified (principal); F20.9 Schizophrenia, unspecified; F17.200 Nicotine dependence, unspecified, uncomplicated
CPT/HCPCS: 36415; 80178; 80306; 82075; 99285

== ENCOUNTER 2018-10-03 21:02 | Emergency (ER) | payer OTHER ==
[2018-10-03 21:12] VITALS: BP 95/59; PULSE 88; RESP 16; TEMP 98.8
[2018-10-03] MEDS ORDERED: DIPH,PERTUS(ACELL)TETVAC-LF 0.5 ML VIAL IM ONE (21:39)
[2018-10-03] MEDS ORDERED: IBUPROFEN 600 MG TAB PO STA (21:39)
--- NOTE | 2018-10-03 22:04 | CT ---
EXAM: CT Head Without Intravenous Contrast CLINICAL HISTORY: ITS.REASON CT Reason: Pain TECHNIQUE: Axial computed tomography images of the head/brain without intravenous contrast. CTDI is 45 mGy and DLP is 1399 mGy-cm. This CT exam was performed using one or more of the following dose reduction techniques: automated exposure control, adjustment of the mA and/or kV according to patient size, and/or use of iterative reconstruction technique. COMPARISON: CT head 08/05/17 FINDINGS: Brain: No hemorrhage, large hypodensity, or mass effect. Ventricles: No hydrocephalus. Bones/joints: Unremarkable. Soft tissues: Unremarkable. Sinuses: Unremarkable. Mastoid air cells: Clear. IMPRESSION: No acute hemorrhage, hydrocephalus, or mass effect.
--- NOTE | 2018-10-03 22:06 | CT ---
EXAM: CT Head Without Intravenous Contrast CT Maxillofacial Without Intravenous Contrast CLINICAL HISTORY: ITS.REASON CT Reason: Right jaw pain after trauma TECHNIQUE: Axial computed tomography images of the head/brain and face without intravenous contrast. CTDI is 45 mGy and DLP is 1399 mGy-cm. This CT exam was performed using one or more of the following dose reduction techniques: automated exposure control, adjustment of the mA and/or kV according to patient size, and/or use of iterative reconstruction technique. COMPARISON: No relevant prior studies available. FINDINGS: Brain: Unremarkable. No hemorrhage. No significant white matter disease. No edema. Ventricles: Unremarkable. No ventriculomegaly. Bones/joints: No acute fracture. Soft tissues: 6 mm hyperdense round object in the right facial subcutaneous tissue. Sinuses: Unremarkable. No acute sinusitis. Mastoid air cells: Unremarkable. No mastoid effusion. Orbits: Unremarkable. IMPRESSION: No acute fracture. 6 mm hyperdense round object in the right facial subcutaneous fat.
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
[2018-10-03] MEDS ORDERED: TOPICAL SKIN ADHESIVE 1 EACH AMP TOPICAL ONE (22:37)
== END 2018-10-03 22:52 | disposition home or self-care (01) ==
LOC: EC 21:02
DX: S61.411A Laceration without foreign body of right hand, initial encounter (principal); S00.83XA Contusion of other part of head, initial encounter; S00.81XA Abrasion of other part of head, initial encounter; F17.200 Nicotine dependence, unspecified, uncomplicated; Z79.899 Other long term (current) drug therapy; Z23 Encounter for immunization; Y04.0XXA Assault by unarmed brawl or fight, initial encounter; Y04.2XXA Assault by strike against or bumped into by another person, initial encounter
CPT/HCPCS: 12001; 70450; 70486; 90471; 90715; 99284

== ENCOUNTER 2019-04-18 18:23 | Inpatient (IN) | payer MEDICAID, OTHER ==
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
[2019-04-18] MEDS ORDERED: MAGNESIUM HYDROXIDE 2,400 MG/10 ML CUP PO PRN (23:41)
[2019-04-18] MEDS ORDERED: ZIPRASIDONE 20 MG VIAL IM PRN (23:41)
[2019-04-18] MEDS ORDERED: MAG HYDROX/AL HYDROX/SIMETH 30 ML CUP PO PRN (23:41)
[2019-04-18] MEDS ORDERED: DIVALPROEX ER 500 MG TAB.ER.24H PO SCH (23:45)
[2019-04-18] MEDS ORDERED: ARIPiprazole 15 MG TAB PO SCH (23:45)
[2019-04-19 06:43] VITALS: RESP 16
--- NOTE | 2019-04-19 06:52 | P.MDCNMH ---
History of Present Illness H&P Date: 04/19/19 Chief Complaint: suicide ideation 33-year-old male with history of depression patient comes into the hospital for suicidal ideation. He was planning, jumping off the bridge and to [place]. Patient attempted cutting himself in the wrist and forearm in the past. Patient otherwise reports that she is compliant with his medications however he is not getting the desired effect in controlling symptoms. Patient currently denies any medical concerns for physical complaints, he denies any trouble breathing fevers or chills denies any coughing nausea vomiting abdominal pain changes in his bowel or urinary habits. Review of Systems Pertinent positives as noted in HPI. All other systems were reviewed and are negative Past Medical History Past Medical History: No Reported History Additional Past Medical History / Comment(s): ADD/ADHD History of Any Multi-Drug Resistant Organisms: None Reported Past Surgical History: Adenoidectomy, Tonsillectomy Past Psychological History: ADD/ADHD Smoking Status: Current every day smoker Past Alcohol Use History: Occasional Past Drug Use History: Marijuana - Past Family History Father Family Medical History: No Reported History Mother Family Medical History: No Reported History Additional Family Medical History / Comment(s): Patient state no known family history but he is estranged from family Medications and Allergies Home Medications Medication Instructions Recorded Confirmed Type ARIPiprazole [Abilify] 15 mg PO HS 04/18/19 04/19/19 History Divalproex ER [Depakote ER] 500 mg PO HS 04/18/19 04/19/19 History Allergies Allergy/AdvReac Type Severity Reaction Status Date / Time No Known Allergies Allergy Verified 04/19/19 00:12 Physical Exam Vitals: Vital Signs Temp Pulse Pulse Resp BP BP Pulse Ox 04/19/19 06:42 97.4 F L 65 16 122/60 04/18/19 23:54 98.4 F 74 14 112/65 96 04/18/19 18:25 98.0 F 118 H 16 131/61 97 Intake and Output 04/18/19 04/18/19 04/19/19 14:59 22:59 06:59 Other: Weight 68.039 kg 69.116 kg Constitutional: No acute distress, conversant, pleasant Eyes: Anicteric sclerae, moist conjunctiva, no lid-lag Pupils equal round reactive to light ENMT: NC/AT Oropharynx clear, no erythema, exudates Neck: Supple, FROM, no masses, or JVD No carotid bruits No thyromegaly Lungs: Clear to auscultation Clear to percussion Normal respiratory effort, no accessory muscle use Cardiovascular: Heart regular in rate and rhythm, No murmurs, gallops, or rubs No peripheral edema Abdominal: Soft Nontender, no guarding, rebound or rigidity Abdomen moving with respiration Normoactive bowel sounds No hepatomegaly, No splenomegaly No palpable mass No abdominal wall hernia noted Skin: Normal temperature, tone, texture, turgor No induration No subcutaneous nodules No rash, lesions No ulcers Extremities: No digital cyanosis No clubbing Pedal pulses intact and symmetrical Radial pulses intact and symmetrical No calf tenderness Psychiatric: Alert and oriented to person, place and time depressed affect poor judgement Neuro Muscles Strength 5/5 in all 4 extremities Sensation to light touch grossly present throughout Cranial nerves II-XII grossly intact No focal sensory deficits Lymphatics: no palpable cervical or supraclavicular , or inguinal lymph nodes Cranial Nerve Examination - Cranial Nerves Cranial Nerve II- Optic: Intact Cranial Nerve III- Oculomotor: Intact Cranial Nerve IV- Trochlear: Intact Cranial Nerve V- Trigeminal: Intact Cranial Nerve - Abducens: Intact Cranial Nerve VII- Facial: Intact Cranial Nerve VIII- Auditory: Intact Cranial Nerve IX- Glossopharyngeal: Intact Cranial Nerve X- Vagus: Intact Cranial Nerve XI- Accessory: Intact Cranial Nerve XII- Hypoglossal: Intact Assessment and Plan Assessment: 23-year-old male with history of depression claims to be compliant with her medications presented due to suicidal ideation due to poorly controlled symptoms of depression. Currently denies any medical complaints Plan: suicidal ideation Depression Management per psych Smoking Counseled to quit smoking Nicotine replacement therapy offered Low risk for DVT patient is ambulatory Follow-up labs Thank you for allowing us to participate in the care of this patient. We will f elizabet peripherally. Do not hesitate to contact us with questions. Someone can be reached from the [facility] hospitalist group at all hours of the day at [phone].
[2019-04-19] MEDS: NICOTINE 21MG/24HR PATCH TRANSDERM SCH ×2 (08:46→13:52)
[2019-04-19 10:24] LABS: Basophils % (A) 0 %; Eosinophils # (A) 0.5 k/uL (0-0.7); Eosinophils % (A) 5 %; HCT 47.3 % (39.0-53.0); HGB 15.2 gm/dL (13.0-17.5); Lymphocytes # (A) 2.9 k/uL (1.0-4.8); Lymphocytes % (A) 28 %; MCH 27.9 pg (25.0-35.0); MCHC 32.2 g/dL (31.0-37.0); MCV 86.8 fL (80.0-100.0); Mean Platelet Volume 7.2; Monocytes # (A) 0.8 k/uL (0-1.0); Monocytes % (A) 8 %; Neutrophils # (A) 5.8 k/uL (1.3-7.7); Neutrophils % (A) 57 %; Platelet Count 296 k/uL (150-450); RBC 5.45 m/uL (4.30-5.90); RDW 12.6 % (11.5-15.5); WBC 10.2 k/uL (3.8-10.6)
[2019-04-19 10:27] LABS: ALT 57 U/L (21-72); AST 35 U/L (17-59); African American GFR (CKD) >90 (>60 ml/min/1.73 sqM); Albumin 4.5 g/dL (3.5-5.0); Alkaline Phosphatase 69 U/L (38-126); Anion Gap 10 mmol/L; Blood Urea Nitrogen 17 mg/dL (9-20); Calcium 9.7 mg/dL (8.4-10.2); Carbon Dioxide 24 mmol/L (22-30); Chloride 109 mmol/L (98-107); Cholesterol 186 mg/dL (<200); Glucose 113 mg/dL (74-99); HDL Cholesterol 40 mg/dL (40-60); LDL Cholesterol,Calculated 122 mg/dL (0-99); Non-African American GFR(CKD) >90 (>60 ml/min/1.73 sqM); Potassium 4.7 mmol/L (3.5-5.1); Sodium 143 mmol/L (137-145); Total Bilirubin 0.5 mg/dL (0.2-1.3); Total Protein 7.3 g/dL (6.3-8.2); Triglycerides 121 mg/dL (<150)
[2019-04-19] MEDS ORDERED: hydrOXYzine PAMOATE 25 MG CAP PO PRN (13:28)
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
[2019-04-19] MEDS: lamoTRIgine 25 MG TAB PO SCH ×2 (13:51→20:50)
[2019-04-19 17:11] LABS: Amorphous Sediment,Urine Occasional /hpf; Appearance,Urine Turbid (Clear); Bilirubin,Urine Negative (Negative); Blood,Urine Negative (Negative); Color,Urine Yellow; Glucose,Urine (UA) Negative (Negative); Ketones,Urine Negative (Negative); Leukocyte Esterase,Urine Negative (Negative); Mucus,Urine Rare /hpf; Nitrite,Urine Negative (Negative); Protein,Urine Negative (Negative); RBC,Urine 1 /hpf (0-5); Specific Gravity,Urine 1.019 (1.001-1.035); Urobilinogen,Urine <2.0 mg/dL (<2.0)
[2019-04-19 17:14] LABS: Amphetamine Screen,Urine Not Detected (NotDetected); Barbiturate Screen,Urine Not Detected (NotDetected); Benzodiazepines Screen,Urine Not Detected (NotDetected); Cocaine Screen,Urine Not Detected (NotDetected); Methadone Screen, Urine Not Detected (NotDetected); Opiate Screen,Urine Not Detected (NotDetected); Oxycodone Screen, Urine Not Detected (NotDetected); Phencyclidine Screen,Urine Not Detected (NotDetected); Tricyclic Antidepressant,Urine Not Detected (NotDetected); Urn Cannabinoid Scrn Not Detected (NotDetected)
[2019-04-19] MEDS: MELATONIN 3 MG TABLET PO PRN (20:51)
[2019-04-19 22:14] LABS: Hemoglobin A1C 5.6 % (4.0-6.0)
[2019-04-20] MEDS: lamoTRIgine 25 MG TAB PO SCH ×2 (07:56→20:33)
[2019-04-20] MEDS: NICOTINE 21MG/24HR PATCH TRANSDERM SCH (07:56)
[2019-04-20] MEDS: ARIPiprazole 15 MG TAB PO SCH (07:56)
--- NOTE | 2019-04-20 10:35 | P.PN ---
Progress Note - Text Progress Note Date: 04/20/19 Interval History: Patient was seen attending groups this morning and was agreeable to speak to kimberly al in the office. Patient was calm and directable today and appeared to have a mildly improved affect. He states that he is feeling "better and all ways" and states that he feels that he got better sleep last night, sleeping through the night with no complaints and also states that his mood and anxiety have been improving. He claims he feels less irritable on the current medications. Patient states that he has been talking to his and claims "she still doesn't want me back" and refers to his 's mother as it is her house. He claims that he is continuing to talk with her and hopes to go back otherwise claims that he is open to go to a long term upon discharge. Patient claims that he has been going to groups and attending to participate and has been taking regularly and has fair energy during the day. Patient is agreeable to have his Lamictal titrated up as needed for mood stabilization. At this time patient denies any suicidal or homical ideations, intent or plan. Patient denies any auditory, visual hallucinations and denies any paranoia or delusions. Patient denies any side effects from the medications and has been compliant with meds. Mental Status Exam: General Appearance: Patient appears to be stated age is alert, and directable today. Patient has marginal hygiene and grooming. He has improving eye contact. Behavior: Patient is calmly seated without any agitated behavior. Somewhat restless at times. Speech: Patient's speech is fluent and nonpressured. Soft tone and hesitant speech. Mood/Affect: Patient reports their mood is depressed and anxious, mildly improving. affect is congruent and constricted. Suicidality/Homicidality: Patient denies having any suicidal or homicidal ideation intent or plan. Perceptions: Patient denies any auditory or visual hallucinations. Though content/process: There is no evidence of any delusional thought content and thought process is linear and goal-directed. [place] thought process. Memory and concentration: AOX3, grossly intact for the purposes of this session. Judgment and insight: poor/compulsive, mildly improving. Assessment Depressive disorder unspecified, rule out bipolar depression Anxiety disorder unspecified Nicotine dependence Plan: -Patient continues to meet criteria for inpatient psychiatric admission for symptom stabilization and safety. Patient has signed adult voluntary form and medication consent and was placed in patient's chart. -Medications: Will increase Lamictal to 25 daily at bedtime +50 mg every morning for mood stabilization/depression. Patient continues to deny any rash and has been monitoring his skin daily, no visible rashes noted. Will continue with Abilify 15 mg every morning. Melatonin when necessary for sleep and Vistaril when necessary for anxiety. -UDS and UA are negative. -When necessary Geodon and Ativan for agitation/aggression. -NRT - nicotine patch -SW on board for discharge planning. Likely discharge in 2-3 days. Patient currently unaware if he can return back home or will need to go to a long term.
[2019-04-20] MEDS: MELATONIN 3 MG TABLET PO PRN (20:44)
[2019-04-21] MEDS: NICOTINE 21MG/24HR PATCH TRANSDERM SCH (08:16)
[2019-04-21] MEDS: ARIPiprazole 15 MG TAB PO SCH (08:17)
[2019-04-21] MEDS: lamoTRIgine 25 MG TAB PO SCH ×2 (08:17→20:44)
--- NOTE | 2019-04-21 10:02 | P.PN ---
Progress Note - Text Progress Note Date: 04/21/19 Interval History: Patient was seen wandering the hallways this morning and was agreeable to speak to science writer in the office. Patient was calm and directable today however appeared to be somewhat restless moving his legs during the conversation. Patient states that he was able to sleep through the night on the melatonin and denied any overt manic complaints. He states that she is attending the talk to his over the phone to work on their relationship however he continues to state that her mother does not want him back in the house. He did claim that his mood is mildly improving however continues to endorse anxiety throughout the day and feeling as though he needs to pace. He does state that he does feel irritable at times during the day and agitated. He also states that he is moving his legs throughout the night. He claims he feels less irritable on the current medications and is agreeable to have the medications titrated up. He states that he been tried on psychostimulants in the past which have not helped him with his concentration issues. 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 Patient claims that he has been going to groups and attending to participate. At this time patient denies any suicidal or homical ideations, intent or plan. Patient denies any auditory, visual hallucinations and denies any paranoia or delusions. Patient denies any side effects from the medications and has been compliant with meds. He denies any rash from medications. Mental Status Exam: General Appearance: Patient appears to be stated age is alert, attempts to cooperate. Patient has marginal hygiene and grooming. He has improving eye contact. Behavior: Patient is calmly seated without any agitated behavior. Somewhat restless Speech: Patient's speech is fluent and nonpressured. Soft tone and hesitant speech. Mood/Affect: Patient reports their mood is depressed and anxious, mildly improving. affect is congruent and constricted. Suicidality/Homicidality: Patient denies having any suicidal or homicidal idea tion intent or plan. Perceptions: Patient denies any auditory or visual hallucinations. Though content/process: There is no evidence of any delusional thought content and thought process is linear and goal-directed. [place] thought process. Memory and concentration: AOX3, grossly intact for the purposes of this session. Judgment and insight: poor/impulsive, mildly improving. Assessment Depressive disorder unspecified, rule out bipolar depression Anxiety disorder unspecified Nicotine dependence Plan: -Patient continues to meet criteria for inpatient psychiatric admission for symptom stabilization and safety. Patient has signed adult voluntary form and medication consent and was placed in patient's chart. -Medications: Will continue with Lamictal to 25 daily at bedtime +50 mg every morning for mood stabilization/depression. Patient continues to deny any rash and has been monitoring his skin daily, no visible rashes noted. Plan to titrate Lamictal up tomorrow. Will decrease Abilify 10 mg every morning for mood stabilization as patient may be feeling more restless on this medication. Melatonin when necessary for sleep. Added scheduled Vistaril 25 mg twice a day for anxiety. -When necessary Geodon and Ativan for agitation/aggression. -NRT - nicotine patch -SW on board for discharge planning. Likely discharge in 1-2 days. Patient will likely be discharged to a long-term after being stabilized on medications.
[2019-04-21] MEDS: hydrOXYzine PAMOATE 25 MG CAP PO SCH ×2 (10:13→20:43)
[2019-04-21] MEDS: MELATONIN 3 MG TABLET PO SCH (20:44)
[2019-04-22] MEDS: NICOTINE 21MG/24HR PATCH TRANSDERM SCH (08:27)
[2019-04-22] MEDS: hydrOXYzine PAMOATE 25 MG CAP PO SCH ×2 (08:28→20:10)
[2019-04-22] MEDS: lamoTRIgine 25 MG TAB PO SCH ×2 (08:28→20:09)
[2019-04-22] MEDS: ARIPiprazole 10 MG TAB PO SCH (08:28)
--- NOTE | 2019-04-22 09:36 | P.PN ---
Progress Note - Text Progress Note Date: 04/22/19 Interval History: Patient was seen wandering laying down in his bed and was agreeable to speak to feature writer in the office. Patient was calm and directable today during conversation. Patient appeared to be less anxious today during conversation. He claims that his mood has been mildly improving however still feels irritable at times during the day. He claims that he is taking his medications every day. Patient offers no overnight complaints and claims that the melatonin is helping with sleep. He states that he is talking with his over the phone who states that she is going to come and visit him over the weekend. He also states that he his continuing to legs throughout the day. Patient agrees to have the medication continue to be titrated up. He denies any rash at this time from medications. He states that his concentration continues to be poor. Patient claims that he has been going to groups and attending to participate. At this time patient denies any suicidal or homical ideations, intent or plan. Patient denies any auditory, visual hallucinations and denies any paranoia or delusions. Patient denies any side effects from the medications and has been compliant with meds. Mental Status Exam: General Appearance: Patient appears to be stated age is alert, attempts to cooperate. Patient has marginal hygiene and grooming. Fair eye contact. Behavior: Patient is calmly seated without any agitated behavior. Somewhat restless, mildly improving Speech: Patient's speech is fluent and nonpressured. Soft tone Mood/Affect: Patient reports their mood is mildly improving. affect is congruent and constricted. Suicidality/Homicidality: Patient denies having any suicidal or homicidal ideation intent or plan. Perceptions: Patient denies any auditory or visual hallucinations. Though content/process: There is no evidence of any delusional thought content and thought process is linear and goal-directed. [place] thought process. Memory and concentration: AOX3, grossly intact for the purposes of this session. Judgment and insight: poor/impulsive, mildly improving. Assessment Depressive disorder unspecified, rule out bipolar depression Anxiety disorder unspecified Nicotine dependence Plan: -Patient continues to meet criteria for inpatient psychiatric admission for symptom stabilization and safety. Patient has signed adult voluntary form and medication consent and was placed in patient's chart. -Medications: Will continue increasing Lamictal to 50 twice a day for mood stabilization/depression. Patient continues to deny any rash and has been monitoring his skin daily, no visible rashes noted. Will continue with Abilify 10 mg every morning for mood stabilization as patient may be feeling more restless on this medication. Melatonin when necessary for sleep. Continue with Vistaril 25 mg twice a day for anxiety. -When necessary Geodon and Ativan for agitation/aggression. -NRT - nicotine patch -SW on board for discharge planning. Likely discharge early next week. Patient will likely be discharged to a nursing home after being stabilized on medications. Patient will need a family meeting prior to discharge.
[2019-04-22] MEDS: MELATONIN 3 MG TABLET PO SCH (20:09)
[2019-04-22] MEDS: ACETAMINOPHEN TAB 325 MG TAB PO PRN (20:10)
--- NOTE | 2019-04-22 21:27 | XR ---
EXAMINATION TYPE: XR chest 1V DATE OF EXAM: 04/22/2019 COMPARISON: 08/05/2017 HISTORY: Pain TECHNIQUE: Single frontal view of the chest is obtained. FINDINGS: Heart and mediastinum are normal. Lungs are clear. Diaphragm is normal. Bony thorax appear s normal. IMPRESSION: Normal chest. No change.
[2019-04-23] MEDS: lamoTRIgine 25 MG TAB PO SCH ×2 (09:03→20:52)
[2019-04-23] MEDS: hydrOXYzine PAMOATE 25 MG CAP PO SCH ×2 (09:03→20:51)
[2019-04-23] MEDS: ARIPiprazole 10 MG TAB PO SCH (09:03)
[2019-04-23] MEDS: NICOTINE 21MG/24HR PATCH TRANSDERM SCH (09:03)
--- NOTE | 2019-04-23 11:20 | P.PN ---
Progress Note - Text Interval history: The patient is found in the hallway he follows me to an interview room. He indicates he is doing well. He had presented with symptoms of depression and suicidal ideation he had a plan of jumping into the [facility]. He reports he feels "a lot better". He feels comfortable with his current psychotropic medication he had no questions pertaining to those. He indicates he sleeping and eating normally staff recorded he slept 6 hours. He described having some discomfort and was worried that he had a rib fracture a chest x-ray was ordered which was negative. He verbalizes future oriented thinking stating that he is hoping to obtain a job that he is scheduled to interview for. Mental status exam: The patient is alert he is dressed in his own clothing hygiene grooming adequate. He has gauge type earrings he is wearing jeans with a T-shirt over a longsleeve shirt. Eye contact is good speech is fluent s pontaneous nonpressured he's pleasant and cooperative. He is easily directed in the session. He is reporting no acute suicidal or homicidal ideation intent or plan. He is reporting no auditory or visual hallucinations or any specific delusions. There is no objective evidence of psychosis. He demonstrates no tangential thinking loose associations or flight of ideas he does not appear hypomanic or manic. Insight and judgment improving. He demonstrates no verbal or physical aggressiveness. Plan: The patient will continue on his current psychotropic medications. It appears he is clinically stabilizing. He is encouraged to continue participating in the milieu we will continue monitoring him for safety. Vital signs reviewed.
[2019-04-23] MEDS: LORazepam 1 MG TAB PO PRN ×2 (14:07→23:14)
[2019-04-23] MEDS: MELATONIN 3 MG TABLET PO SCH (20:52)
[2019-04-23] MEDS: ACETAMINOPHEN TAB 325 MG TAB PO PRN (21:48)
[2019-04-24] MEDS: NICOTINE 21MG/24HR PATCH TRANSDERM SCH (08:28)
[2019-04-24] MEDS: hydrOXYzine PAMOATE 25 MG CAP PO SCH ×2 (08:29→20:53)
[2019-04-24] MEDS: lamoTRIgine 25 MG TAB PO SCH ×2 (08:29→20:53)
[2019-04-24] MEDS: ARIPiprazole 10 MG TAB PO SCH (08:29)
[2019-04-24] MEDS: LORazepam 1 MG TAB PO PRN ×2 (09:17→18:37)
--- NOTE | 2019-04-24 11:51 | P.PN ---
Progress Note - Text Interval history: The patient is found in group he follows me to an interview room. He states that his mood is good. He is hoping that he will be discharged tomorrow. He has no questions or concerns regarding his medication. He indicates that he is sleeping well at night staff recorded he slept at least 6 hours. Appetite is stable. He has been following direction. There have been no reports of any behavioral disturbance. He did have a visit from his last evening and that went well he anticipates she will [facility]. Mental status exam: The patient is alert he is dressed in his own clothing eye contact is appropriate speech is fluent spontaneous nonpressured. He indicates his mood is much better. He is reporting no hopelessness thinking no suicidal ideation intent or plan. He is reporting no auditory or visual hallucinations or specific delusions. He demonstrates no tangential thinking loose associa tions or flight of ideas. He does not appear to be hypomanic or manic. Insight and judgment improving. He demonstrates no verbal or physical aggressiveness. Demonstrates no involuntary repetitive movements. Affect is constricted he demonstrates some mild range. Plan: The patient will continue on his current psychotropic medications. It appears he is clinically stabilizing. We will monitor him for safety he is encouraged to continue participating in the milieu. Vital signs reviewed.
[2019-04-24] MEDS: MELATONIN 3 MG TABLET PO SCH (20:53)
[2019-04-25 06:49] VITALS: BP 105/56; PULSE 87; TEMP 98.4
[2019-04-25] MEDS: ARIPiprazole 10 MG TAB PO SCH (08:55)
[2019-04-25] MEDS: NICOTINE 21MG/24HR PATCH TRANSDERM SCH (08:55)
[2019-04-25] MEDS: hydrOXYzine PAMOATE 25 MG CAP PO SCH (08:55)
[2019-04-25] MEDS: lamoTRIgine 25 MG TAB PO SCH (08:55)
[2019-04-25] MEDS ORDERED: lamoTRIgine 25 MG TAB PO ONE (09:24)
--- NOTE | 2019-04-25 09:39 | P.DS ---
Providers Date of admission: 04/18/19 23:09 Expected date of discharge: 04/25/19 Attending physician: Sharan Beltran MD Consults: 04/18/19 23:41 Consult Physician Routine Consulting Provider: Rhianna Simmons Consult Reason/Comments: H&P and medical Do you want consulting provider notified?: Yes Primary care physician: Stated None - Discharge Diagnosis(es) (1) Bipolar affect, depressed Current Visit: Yes Status: Acute Priority: High (2) Anxiety disorder Current Visit: Yes Status: Acute Priority: Medium (3) Nicotine dependence Current Visit: Yes Status: Acute Priority: Low Hospital Course: Admission HPI: Patient is a 23-year-old male who is currently unemployed, and living with his , has 2 daughters. Patient presented to the hospital yesterday with a complaint of feeling depressed and suicidal with a plan to jump off the bridge into the water. Patient was seen by speech writer today and expressed his feeling of depression, anxiety and irritability which has been progressing for the past month. He states that recently he has had his medications changed and is now taking Abilify and Depakote and admits to taking them every day. He states that he feels the medication is not helping him with his mood. Patient claims that he has been having overwhelming stress at home and has been kicked out of his home by his for the past couple of days after an argument. Patient claims he has stressors including not being able to sustain a job having financial difficulties and feeling "out of control". Patient also expresses that he feels as he is "feeling like I'm failing at everything" and states that the only thing that's keeping him alive are his 2 daughters. 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 Patient states that he has a fear of abandonment from his thinking that "she is going to leave me". Patient claims that he has a history of cutting after arguments and has superficial cuts on his left arm which she showed speech writer which are healing. Patient admits to a decrease in sleep, decrease in concentration and feeling guilty as he cannot be a good or father. Patient admits to a fair appetite and fair energy at this time. Patient denies any suicidal or homicidal ideations intent or plan. At this time patient denies any auditory or visual hallucinations. Patient denies any flight of ideas racing thoughts and increased in goal directed behavior. Patient denies any history of manic episodes in the past however it is unclear when patient gets irritable and agitated. Patient admits to using cigarettes daily and admits to occasional alcohol use approximately 1 drink every 1-2 weeks. He states that he used to smoke marijuana however has quit since being released from probation in December. He denies any other substance use. Hospital course: Upon admission to the unit patient was initially depressed, anxious with thoughts of suicide. Patient was however directable and agreeable to commence treatment. Patient got along well with other patients on the unit and followed unit protocol. Patient had a Depakote level of 26.7 on admission. Patient was compliant with the medications and denied any side effects throughout hospital course. Patient was started on Lamictal and titrated up to a dose of 100 every morning +50 mg daily at bedtime for mood stabilization/depression. Patient was informed of the side effects of potential Carlos Miguel's skin rash and was monitored throughout the hospitalization and patient reported no observed rash. Patient was also started on Vistaril 25 mg twice a day for anxiety. Patient was restarted on his home dose of Abilify however was noticed to be more anxious and feeling restless and titrated down to 10 mg every morning for mood stabilization and patient improved on this dose. Patient spoke of his stressors and engaged in therapy both group and individual. Patient was also seen by medical team for history and physical exam. Patient did have a chest x-ray done on 05/02/19 for pain which found no changes and a normal chest. Throughout the course of the hospitalization patient gradually improved with regards to mood, anxiety, sleep and became future oriented with improved insight and judgment. On the day of discharge patient denied any suicidal or homicidal ideations intent or plan denied any auditory or visual hallucinations. Patient endorsed wanting to live for his future and family. The patient denied any access to guns or weapons. Patient denied any paranoia and did not endorse any delusions. Patient does not have a significant history of substance abuse however was counseled on abstaining from all substances including alcohol and marijuana. Patient was also counseled on the medications and need for regular compliance and was encouraged to follow-up with their outpatient appointment for mental health and also for primary care. Prior to discharge a family meeting will be arranged by social director to answer any questions and ensure safety upon discharge. Mental status exam: General Appearance: Patient appears to be stated age is alert, directable and cooperative. Patient is in no acute distress and has fair hygiene and grooming. Improved eye contact. Behavior: Patient is calmly seated without any agitated behavior. Speech: Patient's speech is fluent and nonpressured. Mood/Affect: Patient reports their mood is "better", affect is congruent and euthymic. Suicidality/Homicidality: Patient denies having any suicidal or homicidal ideation intent or plan. Perceptions: Patient denies any auditory or visual hallucinations. Though content/process: There is no evidence of any delusional thought content and thought process is linear and goal-directed. Memory and concentration: AOX3, grossly intact for the purposes of this session. Can spell "WORLD" backwards correctly. Judgment and insight: fair, improved Impression: Bipolar disorder, currently depressed Anxiety disorder unspecified Nicotine dependence Plan: -Continue with discharge today as patient has improved and stabilized psychiatrically and is not currently an imminent threat to himself and/or others. -Continue medications: Continue with Abilify 10 mg every morning for mood stabilization, Lamictal 100 mg every morning +50 mg daily at bedtime for mood stabilization/depression. Vistaril 25 mg twice a day for anxiety. Melatonin a necessary for sleep. -Patient was counseled on the need for medication compliance and appropriate follow-up at mental health and also primary care for medical issues. Patient verbalized understanding and agreed. -Social work to arrange for and conduct family meeting to ensure safety upon discharge and answer any questions/concerns. Social work also to arrange for patients follow up appointments with [facility] for psychiatric care along with follow up with primary care provider. -Patient counseled on abstaining from recreational drugs and marijuana and alcohol. Was informed/educated on the adverse effects on their physical and mental health. Patient verbally agreed and understood -Patient was instructed to return to the hospital or seek immediate medical care if their psychiatric or medical symptoms do worsen or reoccur. Allergies Allergy/AdvReac Type Severity Reaction Status Date / Time No Known Allergies Allergy Verified 04/19/19 00:12 Laboratory Results WBC 10.2 k/uL (3.8-10.6) 04/19/19 08:32 RBC 5.45 m/uL (4.30-5.90) 04/19/19 08:32 Hgb 15.2 gm/dL (13.0-17.5) 04/19/19 08:32 Hct 47.3 % (39.0-53.0) 04/19/19 08:32 MCV 86.8 fL (80.0-100.0) 04/19/19 08:32 MCH 27.9 pg (25.0-35.0) 04/19/19 08:32 MCHC 32.2 g/dL (31.0-37.0) 04/19/19 08:32 RDW 12.6 % (11.5-15.5) 04/19/19 08:32 Plt Count 296 k/uL (150-450) 04/19/19 08:32 Neutrophils % 57 % 04/19/19 08:32 Lymphocytes % 28 % 04/19/19 08:32 Monocytes % 8 % 04/19/19 08:32 Eosinophils % 5 % 04/19/19 08:32 Basophils % 0 % 04/19/19 08:32 Neutrophils # 5.8 k/uL (1.3-7.7) 04/19/19 08:32 Lymphocytes # 2.9 k/uL (1.0-4.8) 04/19/19 08:32 Monocytes # 0.8 k/uL (0-1.0) 04/19/19 08:32 Eosinophils # 0.5 k/uL (0-0.7) 04/19/19 08:32 Basophils # 0.0 k/uL (0-0.2) 04/19/19 08:32 Sodium 143 mmol/L (137-145) 04/19/19 08:32 Potassium 4.7 mmol/L (3.5-5.1) 04/19/19 08:32 Chloride 109 mmol/L (98-107) H 04/19/19 08:32 Carbon Dioxide 24 mmol/L (22-30) 04/19/19 08:32 Anion Gap 10 mmol/L 04/19/19 08:32 BUN 17 mg/dL (9-20) 04/19/19 08:32 Creatinine 1.06 mg/dL (0.66-1.25) 04/19/19 08:32 Est GFR (CKD-EPI)AfAm >90 (>60 ml/min/1.73 sqM) 04/19/19 08:32 Est GFR (CKD-EPI)NonAf >90 (>60 ml/min/1.73 sqM) 04/19/19 08:32 Glucose 113 mg/dL (74-99) H 04/19/19 08:[address] Glu mg/dL 114 04/19/19 08:32 Hemoglobin A1c 5.6 % (4.0-6.0) 04/19/19 08:32 Calcium 9.7 mg/dL (8.4-10.2) 04/19/19 08:32 Total Bilirubin 0.5 mg/dL (0.2-1.3) 04/19/19 08:32 AST 35 U/L (17-59) 04/19/19 08:32 ALT 57 U/L (21-72) 04/19/19 08:32 Alkaline Phosphatase 69 U/L (38-126) 04/19/19 08:32 Total Protein 7.3 g/dL (6.3-8.2) 04/19/19 08:32 Albumin 4.5 g/dL (3.5-5.0) 04/19/19 08:32 Triglycerides 121 mg/dL (<150) 04/19/19 08:32 Cholesterol 186 mg/dL (<200) 04/19/19 08:32 LDL Cholesterol, Calc 122 mg/dL (0-99) H 04/19/19 08:32 HDL Cholesterol 40 mg/dL (40-60) 04/19/19 08:32 TSH 1.960 mIU/L (0.465-4.680) 04/19/19 08:32 Urine Color Yellow 04/19/19 16:30 Urine Appearance Turbid (Clear) 04/19/19 16:30 Urine pH 7.0 (5.0-8.0) 04/19/19 16:30 Ur Specific [place] 1.019 (1.001-1.035) 04/19/19 16:30 Urine Protein Negative (Negative) 04/19/19 16:30 Urine Glucose (UA) Negative (Negative) 04/19/19 16:30 Urine Ketones Negative (Negative) 04/19/19 16:30 Urine Blood Negative (Negative) 04/19/19 16:30 Urine Nitrite Negative (Negative) 04/19/19 16:30 Urine Bilirubin Negative (Negative) 04/19/19 16:30 Urine Urobilinogen <2.0 mg/dL (<2.0) 04/19/19 16:30 Ur Leukocyte Esterase Negative (Negative) 04/19/19 16:30 Urine RBC 1 /hpf (0-5) 04/19/19 16:30 Amorphous Sediment Occasional /hpf (None) H 04/19/19 16:30 Urine Mucus Rare /hpf (None) H 04/19/19 16:30 Urine Opiates Screen Not Detected (NotDetected) 04/19/19 16:30 Ur Oxycodone Screen Not Detected (NotDetected) 04/19/19 16:30 Urine Methadone Screen Not Detected (NotDetected) 04/19/19 16:30 Ur Propoxyphene Screen Not Detected (NotDetected) 04/19/19 16:30 Ur Barbiturates Screen Not Detected (NotDetected) 04/19/19 16:30 Valproic Acid 26.7 ug/mL 04/19/19 08:32 U Tricyclic Antidepress Not Detected (NotDetected) 04/19/19 16:30 Ur Phencyclidine Scrn Not Detected (NotDetected) 04/19/19 16:30 Ur Amphetamines Screen Not Detected (NotDetected) 04/19/19 16:30 U Methamphetamines Scrn Not Detected (NotDetected) 04/19/19 16:30 U Benzodiazepines Scrn Not Detected (NotDetected) 04/19/19 16:30 Urine Cocaine Screen Not Detected (NotDetected) 04/19/19 16:30 U Marijuana (THC) Screen Not Detected (NotDetected) 04/19/19 16:30 Vital Signs Temp 98.4 F 04/25/19 06:18 Pulse 87 04/25/19 06:18 Resp 16 04/25/19 06:18 BP 105/56 04/25/19 06:18 Pulse Ox 95 04/22/19 06:45 Patient Condition at Discharge: Stable Plan - Discharge Summary New Discharge Prescriptions: New ARIPiprazole [Abilify] 10 mg PO DAILY #28 tab Nicotine 21Mg/24Hr Patch [Habitrol] 1 patch TRANSDERM DAILY #14 patch lamoTRIgine [LaMICtal] 100 mg PO DAILY #28 tab Melatonin 3 mg PO HS 28 Days tablet hydrOXYzine PAMOATE [Vistaril] 25 mg PO BID 28 Days cap lamoTRIgine [LaMICtal] 50 mg PO HS 28 Days tab Discontinued Divalproex ER [Depakote ER] 500 mg PO HS ARIPiprazole [Abilify] 15 mg PO HS Discharge Medication List ARIPiprazole [Abilify] 10 mg PO DAILY #28 tab 04/25/19 [Rx] Melatonin 3 mg PO HS 28 Days tablet 04/25/19 [Rx] Nicotine 21Mg/24Hr Patch [Habitrol] 1 patch TRANSDERM DAILY #14 patch 04/25/19 [Rx] hydrOXYzine PAMOATE [Vistaril] 25 mg PO BID 28 Days cap 04/25/19 [Rx] lamoTRIgine [LaMICtal] 50 mg PO HS 28 Days tab 04/25/19 [Rx] lamoTRIgine [LaMICtal] 100 mg PO DAILY #28 tab 04/25/19 [Rx] Follow up Appointment(s)/Referral(s): None,Stated [Primary Care Provider] - 1-2 days Activity/Diet/Wound Care/Special Instructions: Activity and diet as tolerated. Avoid the use of street drugs and alcohol. Take all medications as prescribed. When you are in need of refills on your medications please contact your medical provider and/or outpatient psychiatrist to have this done. Please go to scheduled outpatient appointment for aftercare treatment. If symptoms return or become worse, call the crisis line at and/or go to the nearest emergency room for evaluation. Discharge Disposition: HOME SELF-CARE
== END 2019-04-25 12:47 | disposition home or self-care (01) | DRG 885 ==
LOC: EC 18:23 → 3MHU 23:09
PROVIDERS: ADMIT Psychiatry & Neurology Psychiatry; ATTEND Psychiatry & Neurology Psychiatry
DX: F31.30 Bipolar disorder, current episode depressed, mild or moderate severity, unspecified (principal); R45.851 Suicidal ideations; F41.9 Anxiety disorder, unspecified; F17.210 Nicotine dependence, cigarettes, uncomplicated; Z79.899 Other long term (current) drug therapy; Z91.5 Personal history of self-harm
CPT/HCPCS: 71045; 80053; 80061; 80164; 80306; 81001; 82075; 83036; 84443; 85025; 99284

== ENCOUNTER 2019-07-22 00:11 | Inpatient (IN) | payer MEDICAID, OTHER ==
--- NOTE | 2019-07-22 01:02 | ED ---
Psych HPI - General Chief Complaint: Psychiatric Symptoms Stated Complaint: Suicidal Ideation Time Seen by Provider: 07/22/19 00:23 Source: patient Mode of arrival: ambulatory - History of Present Illness Initial Comments: Patient is 24-year-old male with history of depression presenting to emergency Department with a chief complaint of suicidal ideations. Patient reports curr ently he has too much going on in his life. He states he is going through a potential divorce with his . States he is suicidal ideations with plans of using his friend's gun. Denies any homicidal thoughts or ideations. States he recently started seeing a therapist with [facility] but thinks that is not helping too much. States she is prescribed psychiatric medication but has not been taking it because he lost them. Does not any other complaints at this time. - Related Data Previous Rx's Medication Instructions Recorded ARIPiprazole [Abilify] 10 mg PO DAILY #28 tab 04/25/19 Melatonin 3 mg PO HS 28 Days tablet 04/25/19 Nicotine 21Mg/24Hr Patch [Habitrol] 1 patch TRANSDERM DAILY #14 patch 04/25/19 hydrOXYzine PAMOATE [Vistaril] 25 mg PO BID 28 Days cap 04/25/19 lamoTRIgine [LaMICtal] 50 mg PO HS 28 Days tab 04/25/19 lamoTRIgine [LaMICtal] 100 mg PO DAILY #28 tab 04/25/19 Allergies Allergy/AdvReac Type Severity Reaction Status Date / Time No Known Allergies Allergy Verified 07/22/19 00:21 Review of Systems ROS Statement: Those systems with pertinent positive or pertinent negative responses have been documented in the HPI. ROS Other: All systems not noted in ROS Statement are negative. Past Medical History Past Medical History: No Reported History Additional Past Medical History / Comment(s): ADD/ADHD History of Any Multi-Drug Resistant Organisms: None Reported Past Surgical History: Adenoidectomy, Tonsillectomy Past Psychological History: Anxiety, Bipolar, Depression Smoking Status: Current every day smoker Past Alcohol Use History: Occasional Past Drug Use History: Marijuana - Past Family History Father Family Medical History: No Reported History Mother Family Medical History: No Reported History Additional Family Medical History / Comment(s): Patient state no known family history but he is estranged from family General Exam Limitations: no limitations General appearance: alert, in no apparent distress Head exam: Present: atraumatic, normocephalic, normal inspection Eye exam: Present: normal appearance, PERRL, EOMI Pupils: Present: normal accommodation ENT exam: Present: normal exam Neck exam: Present: normal inspection, full ROM Respiratory exam: Present: normal lung sounds bilaterally Cardiovascular Exam: Present: regular rate, normal rhythm, normal heart sounds Extremities exam: Present: normal inspection, full ROM Back exam: Present: normal inspection, full ROM Neurological exam: Present: alert, oriented X3 Psychiatric exam: Present: normal affect, depressed, suicidal ideation Skin exam: Present: warm, dry, intact, normal color Course Vital Signs 07/22/19 07/22/19 00:19 00:21 Temperature 97.9 F Pulse Rate 97 89 Respiratory 18 18 Rate Blood Pressure 114/68 122/65 O2 Sat by Pulse 98 98 Oximetry Medical Decision Making - Medical Decision Making Patient is 24-year-old male presents emergency Department with chief complaint of suicidal ideation. Patient had plans of using his friend's gun to, suicide. He said he decided to come to the ED instead. Patient has a history of depression. Physical examination unremarkable. EPS notified. Patient will be admitted for further psychiatric management. Patient would like to be admitted Disposition Clinical Impression: Suicidal ideation Disposition: ADMITTED IP TO THIS [facility] Condition: Stable Is patient prescribed a controlled substance at d/c from ED?: No Time of Disposition: 02:51
[2019-07-22] MEDS ORDERED: MAG HYDROX/AL HYDROX/SIMETH 30 ML CUP PO PRN (04:27)
[2019-07-22] MEDS ORDERED: ACETAMINOPHEN TAB 325 MG TAB PO PRN (04:27)
[2019-07-22] MEDS ORDERED: ZIPRASIDONE 20 MG VIAL IM PRN (04:27)
[2019-07-22] MEDS ORDERED: MAGNESIUM HYDROXIDE 2,400 MG/10 ML CUP PO PRN (04:27)
[2019-07-22] MEDS: lamoTRIgine 25 MG TAB PO SCH ×2 (09:23→20:12)
[2019-07-22] MEDS: NICOTINE 14MG/24HR PATCH TRANSDERM SCH (09:24)
[2019-07-22] MEDS: ARIPiprazole 10 MG TAB PO SCH (09:24)
[2019-07-22 09:26] LABS: ALT 21 U/L (4-49); AST 27 U/L (17-59); African American GFR (CKD) >90 (>60 ml/min/1.73 sqM); Albumin 4.3 g/dL (3.5-5.0); Alkaline Phosphatase 91 U/L (38-126); Anion Gap 8 mmol/L; Bilirubin,Unconjugated 0.4 mg/dL (0.0-1.1); Blood Urea Nitrogen 18 mg/dL (9-20); Calcium 9.1 mg/dL (8.4-10.2); Carbon Dioxide 26 mmol/L (22-30); Chloride 106 mmol/L (98-107); Glucose 85 mg/dL (74-99); Non-African American GFR(CKD) >90 (>60 ml/min/1.73 sqM); Potassium 4.5 mmol/L (3.5-5.1); Sodium 140 mmol/L (137-145); Total Bilirubin 0.3 mg/dL (0.2-1.3); Total Protein 6.9 g/dL (6.3-8.2)
[2019-07-22 09:50] LABS: Bilirubin, Delta -0.1 mg/dL (0.0-0.2)
[2019-07-22 09:59] LABS: Basophils % (A) 0 %; Eosinophils # (A) 0.5 k/uL (0-0.7); Eosinophils % (A) 4 %; HCT 46.6 % (39.0-53.0); HGB 15.4 gm/dL (13.0-17.5); Lymphocytes # (A) 3.9 k/uL (1.0-4.8); Lymphocytes % (A) 35 %; MCH 28.3 pg (25.0-35.0); MCHC 33.1 g/dL (31.0-37.0); MCV 85.8 fL (80.0-100.0); Mean Platelet Volume 7.9; Monocytes # (A) 0.8 k/uL (0-1.0); Monocytes % (A) 7 %; Neutrophils # (A) 5.7 k/uL (1.3-7.7); Neutrophils % (A) 52 %; Platelet Count 313 k/uL (150-450); RBC 5.43 m/uL (4.30-5.90); RDW 12.2 % (11.5-15.5)
[2019-07-22 10:23] LABS: Cholesterol 153 mg/dL (<200); HDL Cholesterol 37 mg/dL (40-60); LDL Cholesterol,Calculated 95 mg/dL (0-99); Triglycerides 103 mg/dL (<150)
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
[2019-07-22] MEDS: LORazepam 1 MG TAB PO PRN (16:54)
[2019-07-22 17:12] LABS: Hemoglobin A1C 5.4 % (4.0-6.0)
--- NOTE | 2019-07-23 03:49 | P.CONS ---
History of Present Illness - Reason for Consult Consult date: 07/23/19 - History of Present Illness The patient is a 51-year-old male with a PMH of depression presented to the ED with complaints of depressive thoughts with suicidal ideation. The patient reported that he has been having multiple issues ongoing and his life which have made it difficult for him to cope. He had reported planning on using his friends none to commit suicide. The patient was subsequently admitted to the mental health unit where he was seen and evaluated at the bedside. The patient reported feeling better since admission his admission. He denied any active suicidal or homicidal ideation. The patient also denied any additional complaints. He denied chest pain, shortness of breath or nausea, vomiting, f ever, chills, dizziness, or diarrhea. He had undergone an extensive evaluation in the emergency room with a WBC count of 11, hemoglobin 15.4, sodium 140, potassium 4.5, BUN 18, creatinine 1.05, and glucose of 85. Review of Systems Pertinent positives and negatives as discussed in HPI, a complete review of systems was performed and all other systems are negative. Past Medical History Past Medical History: No Reported History Additional Past Medical History / Comment(s): ADD/ADHD History of Any Multi-Drug Resistant Organisms: None Reported Past Surgical History: Adenoidectomy, Tonsillectomy Past Anesthesia/Blood Transfusion Reactions: No Reported Reaction Past Psychological History: Anxiety, Bipolar, Depression Smoking Status: Current every day smoker Past Alcohol Use History: Occasional Additional Past Alcohol Use History / Comment(s): Pt states that he is a social drinker Past Drug Use History: Marijuana - Past Family History Father Family Medical History: No Reported History Mother Family Medical History: No Reported History Additional Family Medical History / Comment(s): Patient state no known family history but he is estranged from family Medications and Allergies Home Medications Medication Instructions Recorded Confirmed Type ARIPiprazole [Abilify] 10 mg PO DAILY #28 tab 04/25/19 07/22/19 Rx Melatonin 3 mg PO HS 28 Days tablet 04/25/19 07/22/19 Rx Nicotine 21Mg/24Hr Patch [Habitrol] 1 patch TRANSDERM DAILY #14 patch 04/25/19 07/22/19 Rx hydrOXYzine PAMOATE [Vistaril] 25 mg PO BID 28 Days cap 04/25/19 07/22/19 Rx lamoTRIgine [LaMICtal] 50 mg PO HS 28 Days tab 04/25/19 07/22/19 Rx lamoTRIgine [LaMICtal] 100 mg PO DAILY #28 tab 04/25/19 07/22/19 Rx Allergies Allergy/AdvReac Type Severity Reaction Status Date / Time No Known Allergies Allergy Verified 07/22/19 00:21 Physical Exam Vitals: Vital Signs Temp Pulse Resp BP 07/22/19 04:25 97.9 F 90 18 118/70 Intake and Output 07/22/19 07/22/19 07/23/19 14:59 22:59 06:59 Other: Weight 70.392 kg General: non toxic, no distress, appears at stated age, normal weight Derm: no unusual rashes/lesions no unusual ecchymoses, warm, dry Head: atraumatic, normocephalic, symmetric Eyes: EOMI, no lid lag, anicteric sclera, pupils equal round reactive to light ENT: Nose and ears atraumatic, no thrush, no pharyngeal erythema Neck: No thyromegaly, no cervical lymphadenopathy, trachea midline, supple Mouth: no lip lesion, mucus membranes moist Cardiovascular: S1S2 reg, no murmur, positive posterior tibial pulse bilateral, no edema, capillary refill less than 2 seconds Lungs: CTA bilateral, no rhonchi, no rales , no accessory muscle use Abdominal: soft, nontender to palpation, no guarding, no appreciable organome mikael, normal bowel sounds Ext: no gross muscle atrophy, muscle strength 5 out of 5 in all 4 extremities grossly, no contractures, Neuro: CN II-XI grossly intact, light touch intact all 4 extremities, finger to nose within normal limits, Psych: Alert, oriented, appropriate affect Results CBC & Chem 7: 07/22/19 08:06 07/22/19 08:06 Labs: Abnormal Lab Results - Last 24 Hours (Table) 07/22/19 07/22/19 Range/Units 08:06 08:06 WBC 11.0 H (3.8-10.6) k/uL Delta Bilirubin -0.1 L (0.0-0.2) mg/dL HDL Cholesterol 37 L (40-60) mg/dL Assessment and Plan Plan: Depression with suicidal ideation -As per psychiatry Leukocytosis -No active signs of infection at this time -Monitor CBC for now Tobacco abuse -Advised on importance of cessation -Nicotine patch as needed Thank you for allowing us to participate in the care of this patient. We will follow peripherally. Do not hesitate to contact us with questions. Someone can be reached from the [facility] hospitalist group at all hours of the day at [phone].
[2019-07-23] MEDS: lamoTRIgine 25 MG TAB PO SCH ×2 (08:42→21:47)
[2019-07-23] MEDS: NICOTINE 14MG/24HR PATCH TRANSDERM SCH (08:42)
[2019-07-23] MEDS: ARIPiprazole 10 MG TAB PO SCH (08:42)
[2019-07-23] MEDS: LORazepam 1 MG TAB PO PRN (10:59)
--- NOTE | 2019-07-23 13:53 | P.PN ---
Progress Note - Text Progress Note Date: 07/23/19 Subjective: Patient was seen today as a cross coverage for . The patient was evaluated, chart reviewed, case discussed with the treatment team. Patient reported better sleep last night, but his appetite still very little. Patient has not been going to groups and other unit activities. The patient is compliant with his medications and denies any adverse reactions. Patient reports still feel agitated, with an outburst of severe anger earlier today. He reports his depression is relatively better but continued to have severe mood swings and very irritable mood. Patient denies any suicidal or homicidal ideation, denies any hallucinations. He denies any manic symptoms. Patient requested when necessary Vistaril and we discussed to add Zyprexa Zydis as needed for severe agitation. Objective: Vitals has been reviewed. Mental status examination: Appearance: The patient appears stated age, poorly groomed, disheveled, no specific features. Gait/posture: Normal gait, Normal arm swinging: No abnormal movements. Attitude and behavior: Not fully engaged, superficially cooperative, intermittent eye contact. Motor activity: Normal psychomotor activity Speech: Normal rate, tone. Mood: "Anxious, irritable" Affect: Restricted to flat Thought form: Impoverished Thought content: Paranoid ideation, denies suicidal thoughts, denies homicidal thoughts, denies intentions or plans. Perception: Denies any auditory or visual hallucinations Attention: No impairment. Orientation: Patient patient was fully oriented to time place person and situation. Insight: Patient has fair insight about his psychiatric disorder. Judgment: Patient has fair judgment about his psychiatric treatment. Assessment: Bipolar disorder, depressive episode. Plan: Continue inpatient level of care due to need for further treatment and stabilization provide psychiatric education regarding his diagnosis and treatment Precautions: Continue 15 minutes check for safety. Consider medical consultation if any acute medical issues arise. Provide the patient individual, group therapy, substance use disorder counseling to give better insight and learn coping skills. Medications: Continue Abilify 10 mg daily for mood stabilization. Continue Lamictal 25 mg twice daily for mood stabilization. Start Vistaril 50 mg 3 times a day as needed for severe anxiety/irritability. Start Zyprexa Zydis 5 mg 3 times a day before severe agitation. Discontinue when necessary Geodon and Ativan. Discharge patient to OUTPATIENT services upon a stabilization
[2019-07-23] MEDS: hydrOXYzine PAMOATE 25 MG CAP PO PRN (17:37)
[2019-07-23] MEDS: OLANZapine ODT 5 MG TAB PO PRN (20:06)
[2019-07-24] MEDS: NICOTINE 14MG/24HR PATCH TRANSDERM SCH (08:14)
[2019-07-24] MEDS: lamoTRIgine 25 MG TAB PO SCH ×2 (08:14→22:07)
[2019-07-24] MEDS: ARIPiprazole 10 MG TAB PO SCH (08:14)
[2019-07-24] MEDS: hydrOXYzine PAMOATE 25 MG CAP PO PRN ×2 (11:29→17:18)
--- NOTE | 2019-07-24 13:25 | P.PN ---
Progress Note - Text Progress Note Date: 07/24/19 Subjective: Patient was seen today as a cross coverage for . The patient was evaluated, chart reviewed, case discussed with the treatment team. Patient reports feeling more stable emotionally today and he denies severe mood swings, agitation, or irritable mood today. Reportedly patient has one severe outbursts of rage and agitation after his visited last night and he was given Zyprexa when necessary which he responded very well and controlled his agitation. Marbin lucero presented much calmer today and he denies any suicidal or homicidal ideation. He denies any hallucinations, paranoid ideation, and no delusions could be elicited. Patient reports better sleep and appetite, and he is going to more groups and unit activities today. He is compliant with his medications and he denies any adverse effect. Objective: Vitals has been reviewed. Mental status examination: Appearance: The patient appears stated age, fairly groomed, no specific features. Gait/posture: Normal gait, Normal arm swinging: No abnormal movements. Attitude and behavior: engaged, cooperative, fair eye contact. Motor activity: Normal psychomotor activity Speech: Normal rate, tone. Mood: "Better today" Affect: Restricted Thought form: Linear, goal directed. Thought content: Denies paranoid ideation, denies suicidal thoughts, denies homicidal thoughts, denies intentions or plans. Perception: Denies any auditory or visual hallucinations Attention: No impairment. Orientation: Patient is fully oriented to time place person and situation. Insight: Patient has fair insight about his psychiatric disorder. Judgment: Patient has fair judgment about his psychiatric treatment. Assessment: Bipolar disorder, depressive episode. Plan: Continue inpatient level of care due to need for further treatment and stabilization provide psychiatric education regarding his diagnosis and treatment Precautions: Continue 15 minutes check for safety. Consider medical consultation if any acute medical issues arise. Provide the patient individual, group therapy, substance use disorder counseling to give better insight and learn coping skills. Medications: Continue Abilify 10 mg daily for mood stabilization. Continue Lamictal 25 mg twice daily for mood stabilization. Continue Vistaril 50 mg 3 times a day as needed for severe anxiety/irritability. Continue Zyprexa Zydis 5 mg 3 times a day before severe agitation. Discontinue when necessary Geodon and Ativan. Discharge patient to OUTPATIENT services upon a stabilization
[2019-07-24] MEDS: OLANZapine ODT 5 MG TAB PO PRN (22:59)
[2019-07-25] MEDS: NICOTINE 14MG/24HR PATCH TRANSDERM SCH (10:02)
[2019-07-25] MEDS: ARIPiprazole 10 MG TAB PO SCH (10:02)
[2019-07-25] MEDS: lamoTRIgine 25 MG TAB PO SCH ×2 (10:02→20:24)
[2019-07-25 10:10] VITALS: RESP 16
--- NOTE | 2019-07-25 14:51 | P.PN ---
Subjective Progress Note Date: 07/25/19 Principal diagnosis: Suicidal ideation, adjustment disorder with disturbance of mood and conduct, marital problems, rule out major depressive disorder, rule out bipolar disorder depressed, marijuana use disorder, rule out alcohol use disorder, developmental disability I reviewed the medical record, interviewed the patient and discuss his treatment and treatment plan during team meeting. He denied having thoughts of or suicide. He feels less irritable and more in control of his emotions. He is compliant with described medications. Nursing reported that he had episodes of crying after a conversation with his . He has had no episodes of behavioral dyscontrol. Objective - Vital Signs Vital signs: Vital Signs Temp 97.7 F 07/25/19 06:45 Pulse 72 07/25/19 10:09 Resp 16 07/25/19 10:09 BP 118/54 07/25/19 10:09 Pulse Ox 98 07/22/19 03:21 Intake & Output 07/24/19 07/25/19 07/25/19 18:59 06:59 18:59 Weight 70.5 kg - Exam He appeared disheveled but less malodorous. He was casually dressed, pleasant and appropriate. He had a blunted but bright facial expression. His speech was spontaneous. His affect was blunted and appropriate. He denied suicidal ideation or wishes. He denied feeling hopeless, helpless or worthless. He did not ruminate about his marital relationship. His thinking was concrete and associations were coherent. - Labs CBC & Chem 7: 07/22/19 08:06 07/22/19 08:06 Assessment and Plan Assessment: He is much less distressed than on admission. Plan: Continue Lamictal 25 mg twice a day and titrated clinical Response and tolerance, continue Abilify 10 mg daily, encourage participation in therapeutic groups and activities. Evaluate clinical status response to treatment daily basis.
[2019-07-25] MEDS: hydrOXYzine PAMOATE 25 MG CAP PO PRN ×2 (15:01→20:25)
[2019-07-26 06:50] VITALS: BP 135/63; PULSE 58; TEMP 98.7
[2019-07-26] MEDS: lamoTRIgine 25 MG TAB PO SCH (08:38)
[2019-07-26] MEDS: NICOTINE 14MG/24HR PATCH TRANSDERM SCH (08:38)
[2019-07-26] MEDS: ARIPiprazole 10 MG TAB PO SCH (08:38)
[2019-07-26] MEDS: hydrOXYzine PAMOATE 25 MG CAP PO PRN (08:39)
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
== END 2019-07-26 14:26 | disposition home or self-care (01) | DRG 881 ==
LOC: EC 00:11 → 3MHU 02:37
PROVIDERS: ADMIT Psychiatry & Neurology Psychiatry; ATTEND Psychiatry & Neurology Psychiatry
DX: F32.9 Major depressive disorder, single episode, unspecified (principal); R45.851 Suicidal ideations; F43.25 Adjustment disorder with mixed disturbance of emotions and conduct; D72.829 Elevated white blood cell count, unspecified; F12.10 Cannabis abuse, uncomplicated; Z71.6 Tobacco abuse counseling; F17.210 Nicotine dependence, cigarettes, uncomplicated; F41.9 Anxiety disorder, unspecified; Z63.0 Problems in relationship with spouse or partner; Z65.3 Problems related to other legal circumstances; Z79.899 Other long term (current) drug therapy
CPT/HCPCS: 80053; 80061; 82075; 82248; 83036; 84443; 85025; 99285

== ENCOUNTER 2020-11-01 12:01 | Emergency (ER) | payer OTHER ==
[2020-11-01 12:22] VITALS: RESP 18; TEMP 98.7
[2020-11-01] MEDS ORDERED: LIDOCAINE 1% INJ 10MG/ML (20 ML MDV) SQ ONE (13:55)
[2020-11-01] MEDS ORDERED: BACITRACIN OINT 1 EACH PACKET TOPICAL ONE (13:55)
--- NOTE | 2020-11-01 17:01 | ED ---
General Adult HPI - General Chief complaint: Wound/Laceration Stated complaint: fall/arm lac Time Seen by Provider: 11/01/20 13:41 Source: patient Mode of arrival: ambulatory Limitations: no limitations - History of Present Illness Initial comments: Patient is a 25-year-old male presenting to the emergency Department with complaints of a laceration to his left forearm. Patient states he has a history of being a "cutter" and states he got really frustrated today and use a knife to cut his left forearm. He denies any suicidal or homicidal thoughts at this time. He states he wasn't having suicidal thoughts at the time he cut himself, its "his stress reliever." He states he does see a counselor at [facility] but states he was recently in snf and has been off his medications for over a month. He states he did try to contact his counselor today. He has no further complaints. Upon arrival to the ER his vitals are stable. - Related Data Home Medications Medication Instructions Recorded Confirmed No Known Home Medications 11/01/20 11/01/20 Allergies Allergy/AdvReac Type Severity Reaction Status Date / Time No Known Allergies Allergy Verified 11/01/20 16:00 Review of Systems ROS Statement: Those systems with pertinent positive or pertinent negative responses have been documented in the HPI. ROS Other: All systems not noted in ROS Statement are negative. Past Medical History Past Medical History: No Reported History Additional Past Medical History / Comment(s): ADD/ADHD, cutter History of Any Multi-Drug Resistant Organisms: None Reported Past Surgical History: Adenoidectomy, Tonsillectomy Past Anesthesia/Blood Transfusion Reactions: No Reported Reaction Past Psychological History: Anxiety, Bipolar, Depression Smoking Status: Current every day smoker Past Alcohol Use History: Occasional Past Drug Use History: Marijuana - Past Family History Father Family Medical History: No Reported History Mother Family Medical History: No Reported History Additional Family Medical History / Comment(s): Patient state no known family history but he is estranged from family General Exam - General Exam Comments Initial Comments: GENERAL: Patient is well-developed and well-nourished. Patient is nontoxic and in no acute distress. HEAD: Atraumatic, normocephalic. EYES: Pupils equal round and reactive to light, extraocular movements intact, sclera anicteric, conjunctiva are normal. Eyelids were unremarkable. ENT: TMs normal, nares patent, oropharynx clear without exudates. Moist mucous membranes. NECK: Normal range of motion, supple without lymphadenopathy or JVD. LUNGS: Unlabored respirations. Breath sounds clear to auscultation bilaterally and equal. No wheezes rales or rhonchi. HEART: Regular rate and rhythm without murmurs, rubs or gallops. ABDOMEN: Soft, nontender, normoactive bowel sounds. No guarding, no rebound. No masses appreciated. : Deferred MUSCULOSKELETAL: Normal extremities with adequate strength and normal range of motion, no pitting or edema. No clubbing or cyanosis. NEUROLOGICAL: Patient is alert and oriented x 3. Motor and sensory are also intact. Cranial nerves II through XII grossly intact. Symmetrical smile. Normal speech, normal gait. PSYCH: Normal mood, normal affect. SKIN: Warm, Dry, normal turgor, no rashes. Patient has a large 6cm laceration to the upper left forearm, palmar aspect. Bleeding is controlled. Limitations: no limitations Course Vital Signs 11/01/20 11/01/20 12:18 18:54 Temperature 98.7 F Pulse Rate 104 H 89 Respiratory 18 18 Rate Blood Pressure 111/67 136/84 O2 Sat by Pulse 97 98 Oximetry Procedures - Laceration Laceration #1 Consent Obtained: verbal consent Indication: laceration Site: upper extremity (Left forearm, palmar aspect) Size (cm): 6 Description: linear Depth: simple, single layer Anesthetic Used: lidocaine 1% Anesthesia Technique: local infiltration Amount (mls): 6 Pre-repair: irrigated extensively Type of Sutures: nylon Size of Sutures: 5-0 Number of Sutures: 13 Technique: simple, interrupted Patient Tolerated Procedure: well Medical Decision Making - Medical Decision Making Patient is a 25-year-old male here with a large 6 cm laceration to the left upper forearm, this was self-inflicted due to patient feeling stressed. He has a history of cutting when he gets upset. Patient was evaluated by [facility], they determined that he was stable to go home with a safety plan. Patient did agree to safety plan. He is going to follow up with [facility] tomorrow. He has had no suicidal or homicidal thoughts at this time. Patient's wound was cleaned, closed with 13 sutures. He tolerated procedure well. He is stable for discharge. Case discussed with Dr. Carvalho. Disposition Clinical Impression: Laceration of left forearm, ADHD (attention deficit hyperactivity disorder) Disposition: HOME SELF-CARE Condition: Stable Instructions (If sedation given, give patient instructions): Care For Your Stitches (ED) Additional Instructions: Please return to the Emergency Department if symptoms worsen or any other concerns. Please follow up with [facility] as discussed tomorrow. Follow safety plan as agreed to. Stitches need to be removed in 7-10 days. Keep area clean and dry. Is patient prescribed a controlled substance at d/c from ED?: No Referrals: None,Stated [Primary Care Provider] - 1-2 days Time of Disposition: 18:46
[2020-11-01 18:55] VITALS: BP 136/84; PULSE 89
== END 2020-11-01 18:55 | disposition home or self-care (01) ==
LOC: EC 12:01
DX: S51.812A Laceration without foreign body of left forearm, initial encounter (principal); F90.9 Attention-deficit hyperactivity disorder, unspecified type; F17.200 Nicotine dependence, unspecified, uncomplicated; F12.90 Cannabis use, unspecified, uncomplicated; W26.0XXA Contact with knife, initial encounter
CPT/HCPCS: 12002 ×2; 99282 ×2; 82075; J2001

== ENCOUNTER 2024-05-17 13:33 | Emergency (ER) | payer OTHER ==
[2024-05-17 13:54] VITALS: BP 128/72; PULSE 62; RESP 18; TEMP 98.4
--- NOTE | 2024-05-17 14:52 | XR ---
EXAMINATION TYPE: XR forearm RT DATE OF EXAM: 05/17/2024 2:44 PM COMPARISON: None. CLINICAL INDICATION: Male, 28 years old with history of pain, numbness TECHNIQUE: 2 view(s) obtained. FINDINGS: No acute fracture or dislocation. Joint spaces are preserved. Soft tissues. No foreign bodies. Follow-up exam can be performed 7-10 days from acute trauma IMPRESSION: 1. No acute osseous abnormality right forearm [facility] Michelle Lynn, , 05/17/2024 2:50 PM
--- NOTE | 2024-05-17 15:12 | ED ---
Upper Extremity HPI - General Source: patient, RN notes reviewed Mode of arrival: ambulatory Limitations: no limitations <Cheri Washington - Last Filed: 05/17/24 15:11> - General Source: patient, RN notes reviewed, old records reviewed Mode of arrival: ambulatory Limitations: no limitations - History of Present Illness MD Complaint: Injury to:: right, arm, forearm, wrist -: days(s) (4) Other Extremity Injury: Forearm: Right Handedness: right Place: work Severity scale (1-10): 6 Improves With: none Context: injury Associated Symptoms: denies other symptoms Treatments Prior to Arrival: other (0) <Malachi Blunt - Last Filed: 05/17/24 16:36> - General Chief Complaint: Extremity Injury, Upper Stated Complaint: arm swelling/pain Time Seen by Provider: 05/17/24 15:11 - History of Present Illness Initial Comments: Quick note 28-year-old male presenting for right forearm injury 4 days ago. States he was heavy lifting on Thursday and believes he pulled a tendon in his forearm. States pain has worsened and is worse with movement. (Cheri Washington) This is a 28-year-old male to the ER for evaluation of right forearm pain due to heavy lifting. Patient does have significant swelling to the dorsal aspect of the right forearm, wrist arm (Malachi Blunt) - Related Data Home Medications Medication Instructions Recorded Confirmed No Known Home Medications 11/01/20 11/01/20 Allergies Allergy/AdvReac Type Severity Reaction Status Date / Time No Known Allergies Allergy Verified 05/17/24 13:50 Review of Systems ROS Other: All systems not noted in ROS Statement are negative. <Cheri Washington - Last Filed: 05/17/24 15:11> ROS Other: All systems not noted in ROS Statement are negative. <Malachi Blunt - Last Filed: 05/17/24 16:36> ROS Statement: Those systems with pertinent positive or pertinent negative responses have been documented in the HPI. Past Medical History Past Medical History: No Reported History Additional Past Medical History / Comment(s): ADD/ADHD, cutter History of Any Multi-Drug Resistant Organisms: None Reported Past Surgical History: Adenoidectomy, Tonsillectomy Past Anesthesia/Blood Transfusion Reactions: No Reported Reaction Past Psychological History: Anxiety, Bipolar, Depression Smoking Status: Current every day smoker Past Alcohol Use History: Occasional Past Drug Use History: None Reported - Past Family History Father Family Medical History: No Reported History Mother Family Medical History: No Reported History Additional Family Medical History / Comment(s): Patient state no known family history but he is estranged from family <Cheri Washington - Last Filed: 05/17/24 15:11> General Exam Limitations: no limitations <Cheri Washington - Last Filed: 05/17/24 15:11> General appearance: alert, in no apparent distress Head exam: Present: atraumatic, normocephalic, normal inspection Eye exam: Present: normal appearance, PERRL, EOMI. Absent: scleral icterus, conjunctival injection, periorbital swelling ENT exam: Present: normal exam, mucous membranes moist Neck exam: Present: normal inspection. Absent: tenderness, meningismus, lymphadenopathy Respiratory exam: Present: normal lung sounds bilaterally. Absent: respiratory distress, wheezes, rales, rhonchi, stridor Cardiovascular Exam: Present: regular rate, normal rhythm, normal heart sounds. Absent: systolic murmur, diastolic murmur, rubs, gallop, clicks GI/Abdominal exam: Present: soft, normal bowel sounds. Absent: distended, tenderness, guarding, rebound, rigid Extremities exam: Present: normal inspection, full ROM, normal capillary refill. Absent: tenderness, pedal edema, joint swelling, calf tenderness Back exam: Present: normal inspection Neurological exam: Present: alert, oriented X3, CN II-XII intact Psychiatric exam: Present: normal affect, normal mood Skin exam: Present: warm, dry, intact, normal color. Absent: rash <Malachi Blunt - Last Filed: 05/17/24 16:36> - General Exam Comments Initial Comments: Visual Physical Exam Vital signs reviewed General: Well-appearing, nontoxic, no acute distress. Head: Normocephalic, atraumatic Eyes: PERRLA, EOMI ENT: Airway patent Chest: Nonlabored breathing Skin: No visual rash, normal skin tone Neuro: Alert and oriented 3 Musculoskeletal: No gross abnormalities (Cheri Washington) Course <Malachi Blunt - Last Filed: 05/17/24 16:36> Vital Signs 05/17/24 13:50 Temperature 98.4 F Pulse Rate 62 Respiratory 18 Rate Blood Pressure 128/72 O2 Sat by Pulse 98 Oximetry - Reevaluation(s) Reevaluation #1: 05/17/24 16:36 Medical records reviewed (Malachi Blunt) Reevaluation #2: 05/17/24 16:36 Patient symptoms unchanged (Malachi Blunt) Reevaluation #3: 05/17/24 16:36 Patient informed of results questions answered (Malachi Blunt) Reevaluation #4: Was pt. sent in by a medical professional or institution (, [facility], [facility], urgent care, hospital, or [facility]...) When possible be specific @ -no Did you speak to anyone other than the patient for history (EMS, parent, family, police, friend...)? What history was obtained from this source @ -no Did you review nursing and triage notes (agree or disagree)? Why? @ -agree Are old charts reviewed (outside hosp., previous admission, EMS record, old EKG, old radiological studies, urgent care reports/EKG's, [facility] records)? Report findings @ -yes Differential Diagnosis (chest pain, altered mental status, abdominal pain women, abdominal pain men, vaginal bleeding, weakness, fever, dyspnea, syncope, headache, dizziness, GI bleed, back pain, seizure, CVA, palpatations, mental health, musculoskeletal)? @ -prior EKG interpreted by me (3pts min.). @ -yes X-rays interpreted by me (1pt min.). @ -yes negative for acute disease CT interpreted by me (1pt min.). @ -no U/S interpreted by me (1pt. min.). @ -no What testing was considered but not performed or refused? (CT, X-rays, U/S, labs)? Why? @ -none What meds were considered but not given or refused? Why? @ -none Did you discuss the management of the patient with other professionals (professionals i.e. [facility], [facility], lab, RT, psych nurse, public health social worker, radio station engineer, teacher, reserve officer, case investigator)? Give summary @ -no Was smoking cessation discussed for >3mins.? @ -no Was critical care preformed (if so, how long)? @ -no Were there social determinants of health that impacted care today? How? (Homelessness, low income, unemployed, alcoholism, drug addiction, transportation, low edu. Level, literacy, decrease access to med. care, senior care, rehab)? @ -none Was there de-escalation of care discussed even if they declined (Discuss DNR or withdrawal of care, Hospice)? DNR status @ -no What co-morbidities impacted this encounter? (DM, HTN, Smoking, COPD, CAD, Cancer, CVA, ARF, Chemo, Hep., AIDS, mental health diagnosis, sleep apnea, morbid obesity)? @ -none Was patient admitted / discharged? Hospital course, mention meds given and route, prescriptions, significant lab abnormalities, going to OR and other pertinent info. @ - Undiagnosed new problem with uncertain prognosis? @ -no Drug Therapy requiring intensive monitoring for toxicity (Heparin, Nitro, Insulin, Cardizem)? @ -no Were any procedures done? @ -no Diagnosis/symptom? @ - Acute, or Chronic, or Acute on Chronic? @ -Acute Uncomplicated (without systemic symptoms) or Complicated (systemic symptoms)? @ -Complicated Side effects of treatment? @ -no Exacerbation, Progression, or Severe Exacerbation? @ -exacerbation Poses a threat to life or bodily function? How? (Chest pain, USA, MA, pneumonia, PE, COPD, DKA, ARF, appy, cholecystitis, CVA, Diverticulitis, Homicidal, Suicidal, threat to staff... and all critical care pts) @ -yes (Malachi Blunt) Medical Decision Making <Cheri Washington - Last Filed: 05/17/24 15:11> - Radiology Data Radiology results: report reviewed (X-ray right forearm negative for acute disease), image reviewed <Malachi Blunt - Last Filed: 05/17/24 16:36> - Medical Decision Making I completed the quick note portion of this chart signed Cheri Washington PA-C (Cheri Washington) 28 male with right forearm sprain strain patient does appear to have pulled or torn muscle with hematoma and swelling noted. No acute injury on x-ray, will follow-up with orthopedics if symptoms do not improve (Malachi Blunt) Disposition <Cheri Washington - Last Filed: 12/31/24 15:11> Is patient prescribed a controlled substance at d/c from ED?: No Time of Disposition: 16:30 <Malachi Blunt - Last Filed: 05/17/24 16:36> Clinical Impression: Right forearm pain, Edema of right forearm Disposition: HOME SELF-CARE Condition: Good Instructions (If sedation given, give patient instructions): Muscle Strain (ED), Arm Pain (ED) Referrals: Hector Doherty MD [STAFF PHYSICIAN] - 1-2 days
== END 2024-05-17 16:47 | disposition home or self-care (01) ==
LOC: EC 13:33
DX: S59.911A Unspecified injury of right forearm, initial encounter (principal); S69.91XA Unspecified injury of right wrist, hand and finger(s), initial encounter; X50.1XXA Overexertion from prolonged static or awkward postures, initial encounter; F17.200 Nicotine dependence, unspecified, uncomplicated
CPT/HCPCS: 99283